=== PATIENT | male | born 1950 | race Caucasian/White ===

== ENCOUNTER 2020-12-23 14:46 | Inpatient (IN) | payer MEDICARE ==
[2020-12-23] MEDS ORDERED: Dextrose 50% Abboject 50 ML SYRINGE IVP PRN (17:45)
[2020-12-23] MEDS ORDERED: HumaLOG 300 UNITS/3 ML VIAL SC PRN (17:45)
[2020-12-23] MEDS ORDERED: Dextrose 5% in Water 1,000 ML IV PRN (17:45)
[2020-12-23] MEDS: Gabapentin 300 MG CAP PO SCH (20:24)
[2020-12-23] MEDS: Ferrous Sulfate 325 MG TAB PO SCH (20:24)
[2020-12-23] MEDS: HYDROcodone/Acetaminophen 5/325 mg Tablet PO PRN (20:24)
[2020-12-23] MEDS: Clopidogrel Bisulfate 75 MG TAB PO SCH (20:25)
[2020-12-23] MEDS: Simvastatin 10 MG TAB PO SCH (20:25)
[2020-12-23] MEDS: Lisinopril 10 MG TAB PO SCH (20:25)
[2020-12-23] MEDS: Lantus 1000 UNITS/10 ML VIAL SC SCH (20:36)
[2020-12-23] MEDS: Zolpidem Tartrate 5 MG TAB PO PRN (20:37)
[2020-12-24 06:38] LABS: #Basophils 0.1 thou/uL (0.0-0.2); #Eosinphils 0.3 thou/uL (0.0-0.7); #Monocytes 0.7 thou/uL (0.11-0.59); #Neutrophils 3.9 thou/uL (1.40-6.50); %Basophils 1.2 % (0.0-1.0); %Eosinophils 4.3 % (0.0-10.0); %Lymphocytes 16.6 % (21.0-51.0); %Monocytes 11.9 % (0.0-10.0); %Neutrophils 66.1 % (42.0-75.0); Mean Corpuscular HGB CONC 29.3 g/dL (32.0-36.0); Mean Corpuscular Hemoglobin 27.8 pg (27.0-31.0); Mean Corpuscular Volume 94.9 fL (78.0-98.0); Mean Platelet Volume 6.9 fL (7.4-10.4); Platelet Count 202 thou/uL (130-400); RBC Distribution Width 21.3 % (11.5-14.5); Red Blood Cell (RBC) Count 4.31 mill/uL (4.70-6.10); White Blood Cell (WBC) Count 5.9 thou/uL (4.8-10.8)
[2020-12-24 06:41] LABS: ALT (SGPT) Less than 6 U/L (8-55); AST (SGOT) 7 U/L (5-34); Albumin 2.5 g/dL (3.4-4.8); Alkaline Phosphatase 115 U/L (40-110); Anion Gap 11 mmol/L (10-20); BUN (Urea Nitrogen) 17 mg/dL (8.4-25.7); Bilirubin, Total 0.6 mg/dL (0.2-1.2); Calc. Creatinine Clearance 126 mL/min (70-130); Calcium 8.4 mg/dL (7.8-10.44); Carbon Dioxide 27 mmol/L (23-31); Chloride 102 mmol/L (98-107); Globulin 3.4 g/dL (2.4-3.5); Glucose 109 mg/dL (80-115); Potassium 3.9 mmol/L (3.5-5.1); Protein, Total 5.9 g/dL (5.8-8.1); Sodium 136 mmol/L (136-145)
[2020-12-24] MEDS: Carvedilol 6.25 MG TAB PO SCH ×2 (08:05→17:16)
[2020-12-24] MEDS: Furosemide 20 MG TAB PO SCH (08:05)
[2020-12-24] MEDS: metFORMIN 500 MG TAB PO SCH ×2 (08:06→17:17)
[2020-12-24] MEDS: Escitalopram Oxalate 10 mg Tablet PO SCH (08:06)
[2020-12-24] MEDS: Spironolactone 25 MG TAB PO SCH (08:06)
[2020-12-24] MEDS: Aspirin 81 mg Enteric Coated Tablet PO SCH (08:06)
[2020-12-24] MEDS: Ferrous Sulfate 325 MG TAB PO SCH ×2 (08:06→20:18)
[2020-12-24] MEDS: HYDROcodone/Acetaminophen 5/325 mg Tablet PO PRN ×2 (08:07→20:19)
[2020-12-24 14:11] LABS: MDiff Complete? YES
[2020-12-24 14:12] LABS: Anisocytosis SLIGHT = 6-15 cells (100X) (0-5/hpf); Platelet Morphology Comment Appears Adequate
[2020-12-24] MEDS: Lantus 1000 UNITS/10 ML VIAL SC SCH (20:17)
[2020-12-24] MEDS: Gabapentin 300 MG CAP PO SCH (20:18)
[2020-12-24] MEDS: Clopidogrel Bisulfate 75 MG TAB PO SCH (20:18)
[2020-12-24] MEDS: Lisinopril 10 MG TAB PO SCH (20:18)
[2020-12-24] MEDS: Simvastatin 10 MG TAB PO SCH (20:19)
[2020-12-24] MEDS: Zolpidem Tartrate 5 MG TAB PO PRN (20:19)
[2020-12-25] MEDS: metFORMIN 500 MG TAB PO SCH ×2 (08:06→16:36)
[2020-12-25] MEDS: Furosemide 20 MG TAB PO SCH (08:06)
[2020-12-25] MEDS: Carvedilol 6.25 MG TAB PO SCH ×2 (08:06→16:36)
[2020-12-25] MEDS: Aspirin 81 mg Enteric Coated Tablet PO SCH (08:07)
[2020-12-25] MEDS: Spironolactone 25 MG TAB PO SCH (08:07)
[2020-12-25] MEDS: Ferrous Sulfate 325 MG TAB PO SCH ×2 (08:07→20:45)
[2020-12-25] MEDS: Escitalopram Oxalate 10 mg Tablet PO SCH (08:07)
[2020-12-25] MEDS: HYDROcodone/Acetaminophen 5/325 mg Tablet PO PRN ×3 (08:07→20:46)
[2020-12-25] MEDS: Zolpidem Tartrate 5 MG TAB PO PRN (20:45)
[2020-12-25] MEDS: Lisinopril 10 MG TAB PO SCH (20:45)
[2020-12-25] MEDS: Simvastatin 10 MG TAB PO SCH (20:45)
[2020-12-25] MEDS: Clopidogrel Bisulfate 75 MG TAB PO SCH (20:45)
[2020-12-25] MEDS: Gabapentin 300 MG CAP PO SCH (20:46)
[2020-12-25] MEDS: Lantus 1000 UNITS/10 ML VIAL SC SCH (20:55)
[2020-12-26] MEDS: metFORMIN 500 MG TAB PO SCH ×2 (08:20→17:34)
[2020-12-26] MEDS: Furosemide 20 MG TAB PO SCH (08:20)
[2020-12-26] MEDS: Spironolactone 25 MG TAB PO SCH (08:21)
[2020-12-26] MEDS: Carvedilol 6.25 MG TAB PO SCH ×2 (08:21→17:36)
[2020-12-26] MEDS: Ferrous Sulfate 325 MG TAB PO SCH ×2 (08:21→21:21)
[2020-12-26] MEDS: Aspirin 81 mg Enteric Coated Tablet PO SCH (08:22)
[2020-12-26] MEDS: Escitalopram Oxalate 10 mg Tablet PO SCH (08:22)
[2020-12-26] MEDS: HYDROcodone/Acetaminophen 5/325 mg Tablet PO PRN ×2 (11:35→19:50)
[2020-12-26] MEDS: Clopidogrel Bisulfate 75 MG TAB PO SCH (21:21)
[2020-12-26] MEDS: Lisinopril 10 MG TAB PO SCH (21:21)
[2020-12-26] MEDS: Zolpidem Tartrate 5 MG TAB PO PRN (21:21)
[2020-12-26] MEDS: Simvastatin 10 MG TAB PO SCH (21:21)
[2020-12-26] MEDS: Gabapentin 300 MG CAP PO SCH (21:22)
[2020-12-26] MEDS: Lantus 1000 UNITS/10 ML VIAL SC SCH (21:22)
[2020-12-27] MEDS: Carvedilol 6.25 MG TAB PO SCH ×2 (08:55→17:51)
[2020-12-27] MEDS: Furosemide 20 MG TAB PO SCH (08:55)
[2020-12-27] MEDS: Escitalopram Oxalate 10 mg Tablet PO SCH (08:55)
[2020-12-27] MEDS: metFORMIN 500 MG TAB PO SCH ×2 (08:55→17:51)
[2020-12-27] MEDS: Ferrous Sulfate 325 MG TAB PO SCH ×2 (08:55→21:10)
[2020-12-27] MEDS: Aspirin 81 mg Enteric Coated Tablet PO SCH (08:55)
[2020-12-27] MEDS: Spironolactone 25 MG TAB PO SCH (08:56)
[2020-12-27] MEDS: HYDROcodone/Acetaminophen 5/325 mg Tablet PO PRN (12:42)
[2020-12-27] MEDS: Simvastatin 10 MG TAB PO SCH (21:10)
[2020-12-27] MEDS: Clopidogrel Bisulfate 75 MG TAB PO SCH (21:10)
[2020-12-27] MEDS: Gabapentin 300 MG CAP PO SCH (21:10)
[2020-12-27] MEDS: Lantus 1000 UNITS/10 ML VIAL SC SCH (21:11)
[2020-12-27] MEDS: Lisinopril 10 MG TAB PO SCH (21:11)
[2020-12-27] MEDS: Zolpidem Tartrate 5 MG TAB PO PRN (21:12)
[2020-12-28] MEDS: Furosemide 20 MG TAB PO SCH (08:15)
[2020-12-28] MEDS: Aspirin 81 mg Enteric Coated Tablet PO SCH (08:15)
[2020-12-28] MEDS: Escitalopram Oxalate 10 mg Tablet PO SCH (08:15)
[2020-12-28] MEDS: Ferrous Sulfate 325 MG TAB PO SCH ×2 (08:15→21:53)
[2020-12-28] MEDS: metFORMIN 500 MG TAB PO SCH ×2 (08:15→17:26)
[2020-12-28] MEDS: Spironolactone 25 MG TAB PO SCH (08:15)
[2020-12-28] MEDS: Carvedilol 6.25 MG TAB PO SCH ×2 (08:16→17:26)
[2020-12-28] MEDS ORDERED: Gabapentin 300 MG CAP PO SCH (10:15)
[2020-12-28] MEDS: HumaLOG 300 UNITS/3 ML VIAL SC PRN (11:23)
[2020-12-28] MEDS: HYDROcodone/Acetaminophen 5/325 mg Tablet PO PRN ×3 (11:25→22:06)
[2020-12-28] MEDS: Lisinopril 10 MG TAB PO SCH (21:52)
[2020-12-28] MEDS: Clopidogrel Bisulfate 75 MG TAB PO SCH (21:53)
[2020-12-28] MEDS: Simvastatin 10 MG TAB PO SCH (21:53)
[2020-12-28] MEDS: Gabapentin 300 MG CAP PO SCH (21:53)
[2020-12-28] MEDS: Lantus 1000 UNITS/10 ML VIAL SC SCH (21:54)
[2020-12-28] MEDS: Zolpidem Tartrate 5 MG TAB PO PRN (22:06)
[2020-12-29] MEDS: metFORMIN 500 MG TAB PO SCH ×2 (08:18→17:35)
[2020-12-29] MEDS: Spironolactone 25 MG TAB PO SCH (08:18)
[2020-12-29] MEDS: Ferrous Sulfate 325 MG TAB PO SCH ×2 (08:18→21:11)
[2020-12-29] MEDS: Gabapentin 300 MG CAP PO SCH ×2 (08:18→21:13)
[2020-12-29] MEDS: Furosemide 20 MG TAB PO SCH (08:18)
[2020-12-29] MEDS: Aspirin 81 mg Enteric Coated Tablet PO SCH (08:18)
[2020-12-29] MEDS: Carvedilol 6.25 MG TAB PO SCH ×2 (08:19→17:35)
[2020-12-29] MEDS: Escitalopram Oxalate 10 mg Tablet PO SCH (08:19)
[2020-12-29] MEDS: HYDROcodone/Acetaminophen 5/325 mg Tablet PO PRN ×3 (09:08→21:12)
[2020-12-29] MEDS: HumaLOG 300 UNITS/3 ML VIAL SC PRN (17:35)
[2020-12-29] MEDS: Simvastatin 10 MG TAB PO SCH (21:11)
[2020-12-29] MEDS: Clopidogrel Bisulfate 75 MG TAB PO SCH (21:11)
[2020-12-29] MEDS: Lisinopril 10 MG TAB PO SCH (21:11)
[2020-12-29] MEDS: Zolpidem Tartrate 5 MG TAB PO PRN (21:12)
[2020-12-29] MEDS: Lantus 1000 UNITS/10 ML VIAL SC SCH (21:15)
[2020-12-30] MEDS: Ferrous Sulfate 325 MG TAB PO SCH ×2 (08:19→21:34)
[2020-12-30] MEDS: Furosemide 20 MG TAB PO SCH (08:19)
[2020-12-30] MEDS: Gabapentin 300 MG CAP PO SCH ×2 (08:20→21:35)
[2020-12-30] MEDS: HYDROcodone/Acetaminophen 5/325 mg Tablet PO PRN ×3 (08:21→19:09)
[2020-12-30] MEDS: metFORMIN 500 MG TAB PO SCH ×2 (08:22→17:29)
[2020-12-30] MEDS: Aspirin 81 mg Enteric Coated Tablet PO SCH (08:22)
[2020-12-30] MEDS: Carvedilol 6.25 MG TAB PO SCH ×2 (08:22→17:30)
[2020-12-30] MEDS: Spironolactone 25 MG TAB PO SCH (08:22)
[2020-12-30] MEDS: Escitalopram Oxalate 10 mg Tablet PO SCH (08:22)
[2020-12-30] MEDS: HumaLOG 300 UNITS/3 ML VIAL SC PRN (12:25)
[2020-12-30] MEDS: Simvastatin 10 MG TAB PO SCH (21:34)
[2020-12-30] MEDS: Zolpidem Tartrate 5 MG TAB PO PRN (21:34)
[2020-12-30] MEDS: Lisinopril 10 MG TAB PO SCH (21:35)
[2020-12-30] MEDS: Clopidogrel Bisulfate 75 MG TAB PO SCH (21:35)
[2020-12-30] MEDS: Lantus 1000 UNITS/10 ML VIAL SC SCH (21:36)
[2020-12-31] MEDS: Furosemide 20 MG TAB PO SCH (08:39)
[2020-12-31] MEDS: metFORMIN 500 MG TAB PO SCH ×2 (08:39→17:54)
[2020-12-31] MEDS: Carvedilol 6.25 MG TAB PO SCH ×2 (08:39→17:54)
[2020-12-31] MEDS: Spironolactone 25 MG TAB PO SCH (08:39)
[2020-12-31] MEDS: Escitalopram Oxalate 10 mg Tablet PO SCH (08:39)
[2020-12-31] MEDS: Aspirin 81 mg Enteric Coated Tablet PO SCH (08:39)
[2020-12-31] MEDS: HYDROcodone/Acetaminophen 5/325 mg Tablet PO PRN ×2 (08:40→20:04)
[2020-12-31] MEDS: Ferrous Sulfate 325 MG TAB PO SCH ×2 (08:40→20:02)
[2020-12-31] MEDS: Gabapentin 300 MG CAP PO SCH ×2 (08:41→20:03)
[2020-12-31] MEDS: HumaLOG 300 UNITS/3 ML VIAL SC PRN (11:53)
[2020-12-31] MEDS ORDERED: Acetaminophen 500 MG TAB PO PRN (12:27)
[2020-12-31] MEDS: Acetaminophen 500 MG TAB PO PRN (13:48)
[2020-12-31] MEDS: Lisinopril 10 MG TAB PO SCH (20:02)
[2020-12-31] MEDS: Lantus 1000 UNITS/10 ML VIAL SC SCH (20:02)
[2020-12-31] MEDS: Clopidogrel Bisulfate 75 MG TAB PO SCH (20:02)
[2020-12-31] MEDS: Simvastatin 10 MG TAB PO SCH (20:03)
[2021-01-01] MEDS: Acetaminophen 500 MG TAB PO PRN ×4 (00:57→19:51)
[2021-01-01] MEDS: Aspirin 81 mg Enteric Coated Tablet PO SCH (08:54)
[2021-01-01] MEDS: Spironolactone 25 MG TAB PO SCH (08:54)
[2021-01-01] MEDS: Carvedilol 6.25 MG TAB PO SCH ×2 (08:54→17:15)
[2021-01-01] MEDS: Gabapentin 300 MG CAP PO SCH ×2 (08:54→19:52)
[2021-01-01] MEDS: Escitalopram Oxalate 10 mg Tablet PO SCH (08:54)
[2021-01-01] MEDS: Ferrous Sulfate 325 MG TAB PO SCH ×2 (08:54→19:53)
[2021-01-01] MEDS: Furosemide 20 MG TAB PO SCH (08:54)
[2021-01-01] MEDS: metFORMIN 500 MG TAB PO SCH ×2 (08:54→17:15)
[2021-01-01] MEDS: HYDROcodone/Acetaminophen 5/325 mg Tablet PO PRN ×2 (09:01→15:01)
[2021-01-01] MEDS: Lisinopril 10 MG TAB PO SCH (19:51)
[2021-01-01] MEDS: Simvastatin 10 MG TAB PO SCH (19:53)
[2021-01-01] MEDS: Clopidogrel Bisulfate 75 MG TAB PO SCH (19:53)
[2021-01-01] MEDS: Zolpidem Tartrate 5 MG TAB PO PRN (21:34)
[2021-01-01] MEDS: Lantus 1000 UNITS/10 ML VIAL SC SCH (21:34)
[2021-01-02] MEDS: Aspirin 81 mg Enteric Coated Tablet PO SCH (08:32)
[2021-01-02] MEDS: Spironolactone 25 MG TAB PO SCH (08:32)
[2021-01-02] MEDS: Furosemide 20 MG TAB PO SCH (08:32)
[2021-01-02] MEDS: Ferrous Sulfate 325 MG TAB PO SCH ×2 (08:32→20:48)
[2021-01-02] MEDS: metFORMIN 500 MG TAB PO SCH ×2 (08:32→17:36)
[2021-01-02] MEDS: Gabapentin 300 MG CAP PO SCH ×2 (08:32→20:47)
[2021-01-02] MEDS: Escitalopram Oxalate 10 mg Tablet PO SCH (08:32)
[2021-01-02] MEDS: Carvedilol 6.25 MG TAB PO SCH ×2 (08:33→17:36)
[2021-01-02] MEDS: HumaLOG 300 UNITS/3 ML VIAL SC PRN (12:06)
[2021-01-02] MEDS: HYDROcodone/Acetaminophen 5/325 mg Tablet PO PRN ×2 (13:18→20:48)
[2021-01-02] MEDS: Acetaminophen 500 MG TAB PO PRN (13:19)
[2021-01-02] MEDS: Clopidogrel Bisulfate 75 MG TAB PO SCH (20:46)
[2021-01-02] MEDS: Lisinopril 10 MG TAB PO SCH (20:46)
[2021-01-02] MEDS: Simvastatin 10 MG TAB PO SCH (20:48)
[2021-01-02] MEDS: Lantus 1000 UNITS/10 ML VIAL SC SCH (20:50)
[2021-01-02] MEDS: Zolpidem Tartrate 5 MG TAB PO PRN (21:35)
[2021-01-03] MEDS: Furosemide 20 MG TAB PO SCH (08:01)
[2021-01-03] MEDS: Gabapentin 300 MG CAP PO SCH ×2 (08:01→20:25)
[2021-01-03] MEDS: Aspirin 81 mg Enteric Coated Tablet PO SCH (08:01)
[2021-01-03] MEDS: Spironolactone 25 MG TAB PO SCH (08:01)
[2021-01-03] MEDS: Carvedilol 6.25 MG TAB PO SCH ×2 (08:01→17:24)
[2021-01-03] MEDS: metFORMIN 500 MG TAB PO SCH ×2 (08:01→17:25)
[2021-01-03] MEDS: Ferrous Sulfate 325 MG TAB PO SCH ×2 (08:01→20:24)
[2021-01-03] MEDS: Escitalopram Oxalate 10 mg Tablet PO SCH (08:02)
[2021-01-03] MEDS: HYDROcodone/Acetaminophen 5/325 mg Tablet PO PRN ×2 (09:12→20:26)
[2021-01-03] MEDS: Acetaminophen 500 MG TAB PO PRN (14:16)
[2021-01-03] MEDS: Simvastatin 10 MG TAB PO SCH (20:25)
[2021-01-03] MEDS: Lisinopril 10 MG TAB PO SCH (20:25)
[2021-01-03] MEDS: Clopidogrel Bisulfate 75 MG TAB PO SCH (20:25)
[2021-01-03] MEDS: Lantus 1000 UNITS/10 ML VIAL SC SCH (20:27)
[2021-01-03] MEDS: Zolpidem Tartrate 5 MG TAB PO PRN (22:00)
[2021-01-04] MEDS: Aspirin 81 mg Enteric Coated Tablet PO SCH (09:11)
[2021-01-04] MEDS: metFORMIN 500 MG TAB PO SCH ×2 (09:11→17:20)
[2021-01-04] MEDS: Spironolactone 25 MG TAB PO SCH (09:11)
[2021-01-04] MEDS: Carvedilol 6.25 MG TAB PO SCH ×2 (09:11→17:20)
[2021-01-04] MEDS: Ferrous Sulfate 325 MG TAB PO SCH ×2 (09:11→19:53)
[2021-01-04] MEDS: Furosemide 20 MG TAB PO SCH (09:12)
[2021-01-04] MEDS: Escitalopram Oxalate 10 mg Tablet PO SCH (09:12)
[2021-01-04] MEDS: Gabapentin 300 MG CAP PO SCH ×2 (09:14→19:54)
[2021-01-04] MEDS: HYDROcodone/Acetaminophen 5/325 mg Tablet PO PRN ×2 (09:16→19:51)
[2021-01-04] MEDS: HumaLOG 300 UNITS/3 ML VIAL SC PRN (12:01)
[2021-01-04] MEDS: Acetaminophen 500 MG TAB PO PRN (17:19)
[2021-01-04] MEDS: Lisinopril 10 MG TAB PO SCH (19:53)
[2021-01-04] MEDS: Simvastatin 10 MG TAB PO SCH (19:54)
[2021-01-04] MEDS: Clopidogrel Bisulfate 75 MG TAB PO SCH (19:54)
[2021-01-04] MEDS: Lantus 1000 UNITS/10 ML VIAL SC SCH (20:30)
[2021-01-04] MEDS: Zolpidem Tartrate 5 MG TAB PO PRN (21:54)
[2021-01-05] MEDS: Furosemide 20 MG TAB PO SCH (08:15)
[2021-01-05] MEDS: Carvedilol 6.25 MG TAB PO SCH ×2 (09:04→17:39)
[2021-01-05] MEDS: Spironolactone 25 MG TAB PO SCH (09:04)
[2021-01-05] MEDS: Aspirin 81 mg Enteric Coated Tablet PO SCH (09:04)
[2021-01-05] MEDS: Ferrous Sulfate 325 MG TAB PO SCH ×2 (09:04→20:30)
[2021-01-05] MEDS: metFORMIN 500 MG TAB PO SCH ×2 (09:04→17:39)
[2021-01-05] MEDS: Escitalopram Oxalate 10 mg Tablet PO SCH (09:04)
[2021-01-05] MEDS: Gabapentin 300 MG CAP PO SCH ×2 (09:05→20:30)
[2021-01-05] MEDS: HYDROcodone/Acetaminophen 5/325 mg Tablet PO PRN ×2 (09:10→20:34)
[2021-01-05] MEDS: HumaLOG 300 UNITS/3 ML VIAL SC PRN (11:56)
[2021-01-05] MEDS: Acetaminophen 500 MG TAB PO PRN (17:43)
[2021-01-05] MEDS: Clopidogrel Bisulfate 75 MG TAB PO SCH (20:30)
[2021-01-05] MEDS: Simvastatin 10 MG TAB PO SCH (20:30)
[2021-01-05] MEDS: Lisinopril 10 MG TAB PO SCH (20:30)
[2021-01-05] MEDS: Lantus 1000 UNITS/10 ML VIAL SC SCH (20:39)
[2021-01-05] MEDS: Zolpidem Tartrate 5 MG TAB PO PRN (21:59)
[2021-01-06] MEDS: HYDROcodone/Acetaminophen 5/325 mg Tablet PO PRN ×3 (08:26→22:10)
[2021-01-06] MEDS: Aspirin 81 mg Enteric Coated Tablet PO SCH (08:32)
[2021-01-06] MEDS: Carvedilol 6.25 MG TAB PO SCH ×2 (08:33→17:19)
[2021-01-06] MEDS: metFORMIN 500 MG TAB PO SCH ×2 (08:33→17:19)
[2021-01-06] MEDS: Escitalopram Oxalate 10 mg Tablet PO SCH (08:35)
[2021-01-06] MEDS: Ferrous Sulfate 325 MG TAB PO SCH ×2 (08:35→22:12)
[2021-01-06] MEDS: Gabapentin 300 MG CAP PO SCH ×2 (08:35→22:12)
[2021-01-06] MEDS: Spironolactone 25 MG TAB PO SCH (08:35)
[2021-01-06] MEDS: Furosemide 20 MG TAB PO SCH (08:35)
[2021-01-06] MEDS: Zolpidem Tartrate 5 MG TAB PO PRN (22:10)
[2021-01-06] MEDS: Simvastatin 10 MG TAB PO SCH (22:11)
[2021-01-06] MEDS: Clopidogrel Bisulfate 75 MG TAB PO SCH (22:11)
[2021-01-06] MEDS: Lisinopril 10 MG TAB PO SCH (22:11)
[2021-01-06] MEDS: Lantus 1000 UNITS/10 ML VIAL SC SCH (22:16)
[2021-01-07] MEDS: HYDROcodone/Acetaminophen 5/325 mg Tablet PO PRN ×3 (08:41→22:05)
[2021-01-07] MEDS: Escitalopram Oxalate 10 mg Tablet PO SCH (08:43)
[2021-01-07] MEDS: Gabapentin 300 MG CAP PO SCH ×2 (08:43→22:04)
[2021-01-07] MEDS: Aspirin 81 mg Enteric Coated Tablet PO SCH (08:43)
[2021-01-07] MEDS: Carvedilol 6.25 MG TAB PO SCH ×2 (08:44→17:16)
[2021-01-07] MEDS: Ferrous Sulfate 325 MG TAB PO SCH ×2 (08:44→22:04)
[2021-01-07] MEDS: metFORMIN 500 MG TAB PO SCH ×2 (08:44→17:16)
[2021-01-07] MEDS: Furosemide 20 MG TAB PO SCH (08:45)
[2021-01-07] MEDS: Spironolactone 25 MG TAB PO SCH (08:45)
[2021-01-07] MEDS: HumaLOG 300 UNITS/3 ML VIAL SC PRN (17:24)
[2021-01-07] MEDS: Lisinopril 10 MG TAB PO SCH (22:03)
[2021-01-07] MEDS: Zolpidem Tartrate 5 MG TAB PO PRN (22:04)
[2021-01-07] MEDS: Simvastatin 10 MG TAB PO SCH (22:04)
[2021-01-07] MEDS: Lantus 1000 UNITS/10 ML VIAL SC SCH (22:06)
[2021-01-07] MEDS: Clopidogrel Bisulfate 75 MG TAB PO SCH (22:11)
[2021-01-08] MEDS: metFORMIN 500 MG TAB PO SCH ×2 (08:34→17:14)
[2021-01-08] MEDS: Carvedilol 6.25 MG TAB PO SCH ×2 (08:34→17:14)
[2021-01-08] MEDS: Furosemide 20 MG TAB PO SCH (08:34)
[2021-01-08] MEDS: Spironolactone 25 MG TAB PO SCH (08:34)
[2021-01-08] MEDS: Aspirin 81 mg Enteric Coated Tablet PO SCH (08:35)
[2021-01-08] MEDS: Gabapentin 300 MG CAP PO SCH ×2 (08:35→20:53)
[2021-01-08] MEDS: Ferrous Sulfate 325 MG TAB PO SCH ×2 (08:35→20:53)
[2021-01-08] MEDS: Escitalopram Oxalate 10 mg Tablet PO SCH (08:35)
[2021-01-08] MEDS: HYDROcodone/Acetaminophen 5/325 mg Tablet PO PRN ×2 (13:49→21:59)
[2021-01-08] MEDS: Clopidogrel Bisulfate 75 MG TAB PO SCH (20:53)
[2021-01-08] MEDS: Lisinopril 10 MG TAB PO SCH (20:54)
[2021-01-08] MEDS: Simvastatin 10 MG TAB PO SCH (20:54)
[2021-01-08] MEDS: Lantus 1000 UNITS/10 ML VIAL SC SCH (20:55)
[2021-01-08] MEDS: Zolpidem Tartrate 5 MG TAB PO PRN (22:00)
[2021-01-09] MEDS: Aspirin 81 mg Enteric Coated Tablet PO SCH (08:24)
[2021-01-09] MEDS: Gabapentin 300 MG CAP PO SCH ×2 (08:25→21:49)
[2021-01-09] MEDS: Milk Of Magnesia 30 ML UDCUP PO PRN (08:25)
[2021-01-09] MEDS: Escitalopram Oxalate 10 mg Tablet PO SCH (08:26)
[2021-01-09] MEDS: metFORMIN 500 MG TAB PO SCH ×2 (08:26→17:44)
[2021-01-09] MEDS: Ferrous Sulfate 325 MG TAB PO SCH ×2 (08:26→21:47)
[2021-01-09] MEDS: Carvedilol 6.25 MG TAB PO SCH ×2 (09:25→17:44)
[2021-01-09] MEDS: Furosemide 20 MG TAB PO SCH (09:26)
[2021-01-09] MEDS: Spironolactone 25 MG TAB PO SCH (09:31)
[2021-01-09] MEDS: HYDROcodone/Acetaminophen 5/325 mg Tablet PO PRN ×2 (13:13→21:48)
[2021-01-09] MEDS: Simvastatin 10 MG TAB PO SCH (21:47)
[2021-01-09] MEDS: Clopidogrel Bisulfate 75 MG TAB PO SCH (21:47)
[2021-01-09] MEDS: Lisinopril 10 MG TAB PO SCH (21:47)
[2021-01-09] MEDS: Zolpidem Tartrate 5 MG TAB PO PRN (21:48)
[2021-01-09] MEDS: Lantus 1000 UNITS/10 ML VIAL SC SCH (21:49)
[2021-01-10] MEDS: Ferrous Sulfate 325 MG TAB PO SCH ×2 (07:45→21:22)
[2021-01-10] MEDS: metFORMIN 500 MG TAB PO SCH ×2 (08:53→17:33)
[2021-01-10] MEDS: Carvedilol 6.25 MG TAB PO SCH ×2 (08:53→17:33)
[2021-01-10] MEDS: Escitalopram Oxalate 10 mg Tablet PO SCH (08:54)
[2021-01-10] MEDS: Aspirin 81 mg Enteric Coated Tablet PO SCH (08:54)
[2021-01-10] MEDS: Gabapentin 300 MG CAP PO SCH ×2 (08:55→21:20)
[2021-01-10] MEDS: Furosemide 20 MG TAB PO SCH (09:01)
[2021-01-10] MEDS: Spironolactone 25 MG TAB PO SCH (09:03)
[2021-01-10] MEDS: HYDROcodone/Acetaminophen 5/325 mg Tablet PO PRN ×2 (09:06→21:27)
[2021-01-10] MEDS: Milk Of Magnesia 30 ML UDCUP PO PRN (09:12)
[2021-01-10] MEDS: HumaLOG 300 UNITS/3 ML VIAL SC PRN (12:06)
[2021-01-10] MEDS: Acetaminophen 500 MG TAB PO PRN (21:21)
[2021-01-10] MEDS: Clopidogrel Bisulfate 75 MG TAB PO SCH (21:22)
[2021-01-10] MEDS: Lisinopril 10 MG TAB PO SCH (21:22)
[2021-01-10] MEDS: Zolpidem Tartrate 5 MG TAB PO PRN (21:22)
[2021-01-10] MEDS: Simvastatin 10 MG TAB PO SCH (21:22)
[2021-01-10] MEDS: Lantus 1000 UNITS/10 ML VIAL SC SCH (21:22)
[2021-01-11] MEDS: Furosemide 20 MG TAB PO SCH (08:18)
[2021-01-11] MEDS: Escitalopram Oxalate 10 mg Tablet PO SCH (08:18)
[2021-01-11] MEDS: Ferrous Sulfate 325 MG TAB PO SCH ×2 (08:18→21:04)
[2021-01-11] MEDS: Aspirin 81 mg Enteric Coated Tablet PO SCH (08:18)
[2021-01-11] MEDS: Spironolactone 25 MG TAB PO SCH (08:18)
[2021-01-11] MEDS: metFORMIN 500 MG TAB PO SCH ×2 (08:18→17:48)
[2021-01-11] MEDS: Gabapentin 300 MG CAP PO SCH ×2 (08:18→21:03)
[2021-01-11] MEDS: Carvedilol 6.25 MG TAB PO SCH ×2 (08:19→17:49)
[2021-01-11] MEDS: HYDROcodone/Acetaminophen 5/325 mg Tablet PO PRN ×4 (08:23→22:03)
[2021-01-11] MEDS: Milk Of Magnesia 30 ML UDCUP PO PRN (08:23)
[2021-01-11] MEDS: HumaLOG 300 UNITS/3 ML VIAL SC PRN (12:15)
[2021-01-11] MEDS: Acetaminophen 500 MG TAB PO PRN (17:48)
[2021-01-11] MEDS: Lisinopril 10 MG TAB PO SCH (21:03)
[2021-01-11] MEDS: Clopidogrel Bisulfate 75 MG TAB PO SCH (21:03)
[2021-01-11] MEDS: Lantus 1000 UNITS/10 ML VIAL SC SCH (21:04)
[2021-01-11] MEDS: Simvastatin 10 MG TAB PO SCH (21:04)
[2021-01-11] MEDS: Zolpidem Tartrate 5 MG TAB PO PRN (22:05)
[2021-01-12 05:57] LABS: #Basophils 0.2 thou/uL (0.0-0.2); #Eosinphils 0.6 thou/uL (0.0-0.7); #Lymphocytes 1.3 thou/uL (1.20-3.40); #Monocytes 0.6 thou/uL (0.11-0.59); #Neutrophils 4.4 thou/uL (1.40-6.50); %Basophils 2.2 % (0.0-1.0); %Eosinophils 7.8 % (0.0-10.0); %Lymphocytes 18.5 % (21.0-51.0); %Neutrophils 62.5 % (42.0-75.0); Anisocytosis MODERATE=16-30 cells (100X) (0-5/hpf); Bite Cells SLIGHT = 2-5 cells (100X) (0-1/hpf); Burr Cells SLIGHT = 2-5 cells (100X) (0-1/hpf); Hemoglobin 11.8 g/dL (14.0-18.0); MDiff Complete? YES; Mean Corpuscular HGB CONC 30.6 g/dL (32.0-36.0); Mean Corpuscular Hemoglobin 29.3 pg (27.0-31.0); Mean Corpuscular Volume 95.8 fL (78.0-98.0); Mean Platelet Volume 6.6 fL (7.4-10.4); Ovalocytes SLIGHT = 2-5 cells (100X) (0-1/hpf); Platelet Count 276 thou/uL (130-400); Platelet Morphology Comment Appears Adequate; Poikilocytosis MODERATE=16-30 cells (100X) (0-5/hpf); RBC Distribution Width 18.9 % (11.5-14.5); Red Blood Cell (RBC) Count 4.01 mill/uL (4.70-6.10); Tear Drops SLIGHT = 2-5 cells (100X) (0-1/hpf)
[2021-01-12 05:58] LABS: Anion Gap 12 mmol/L (10-20); BUN (Urea Nitrogen) 23 mg/dL (8.4-25.7); Calc. Creatinine Clearance 110 mL/min (70-130); Calcium 8.8 mg/dL (7.8-10.44); Carbon Dioxide 26 mmol/L (23-31); Chloride 100 mmol/L (98-107); Glucose 96 mg/dL (80-115); Potassium 4.4 mmol/L (3.5-5.1); Sodium 134 mmol/L (136-145)
[2021-01-12] MEDS: Furosemide 20 MG TAB PO SCH (09:07)
[2021-01-12] MEDS: Spironolactone 25 MG TAB PO SCH (09:08)
[2021-01-12] MEDS: metFORMIN 500 MG TAB PO SCH ×2 (09:08→17:45)
[2021-01-12] MEDS: Escitalopram Oxalate 10 mg Tablet PO SCH (09:08)
[2021-01-12] MEDS: Ferrous Sulfate 325 MG TAB PO SCH ×2 (09:08→21:37)
[2021-01-12] MEDS: Aspirin 81 mg Enteric Coated Tablet PO SCH (09:08)
[2021-01-12] MEDS: Carvedilol 6.25 MG TAB PO SCH ×2 (09:08→17:45)
[2021-01-12] MEDS: Gabapentin 300 MG CAP PO SCH ×2 (09:09→21:38)
[2021-01-12] MEDS: HYDROcodone/Acetaminophen 5/325 mg Tablet PO PRN ×2 (18:16→21:39)
[2021-01-12] MEDS: Zolpidem Tartrate 5 MG TAB PO PRN (21:37)
[2021-01-12] MEDS: Clopidogrel Bisulfate 75 MG TAB PO SCH (21:37)
[2021-01-12] MEDS: Simvastatin 10 MG TAB PO SCH (21:38)
[2021-01-12] MEDS: Lisinopril 10 MG TAB PO SCH (21:38)
[2021-01-12] MEDS: Lantus 1000 UNITS/10 ML VIAL SC SCH (22:00)
[2021-01-13] MEDS: Furosemide 20 MG TAB PO SCH (08:02)
[2021-01-13] MEDS: metFORMIN 500 MG TAB PO SCH ×2 (08:03→16:41)
[2021-01-13] MEDS: Carvedilol 6.25 MG TAB PO SCH ×2 (08:03→16:41)
[2021-01-13] MEDS: Spironolactone 25 MG TAB PO SCH (08:04)
[2021-01-13] MEDS: Gabapentin 300 MG CAP PO SCH ×2 (08:04→21:12)
[2021-01-13] MEDS: Aspirin 81 mg Enteric Coated Tablet PO SCH (08:04)
[2021-01-13] MEDS: Ferrous Sulfate 325 MG TAB PO SCH ×2 (08:04→21:12)
[2021-01-13] MEDS: Escitalopram Oxalate 10 mg Tablet PO SCH (08:04)
[2021-01-13] MEDS: HumaLOG 300 UNITS/3 ML VIAL SC PRN (12:26)
[2021-01-13] MEDS: Acetaminophen 500 MG TAB PO PRN (12:34)
[2021-01-13] MEDS: Clopidogrel Bisulfate 75 MG TAB PO SCH (21:12)
[2021-01-13] MEDS: Lisinopril 10 MG TAB PO SCH (21:12)
[2021-01-13] MEDS: Lantus 1000 UNITS/10 ML VIAL SC SCH (21:13)
[2021-01-13] MEDS: Simvastatin 10 MG TAB PO SCH (21:13)
[2021-01-13] MEDS: HYDROcodone/Acetaminophen 5/325 mg Tablet PO PRN (22:03)
[2021-01-13] MEDS: Zolpidem Tartrate 5 MG TAB PO PRN (22:04)
[2021-01-14] MEDS: Aspirin 81 mg Enteric Coated Tablet PO SCH (08:14)
[2021-01-14] MEDS: metFORMIN 500 MG TAB PO SCH ×2 (08:18→17:33)
[2021-01-14] MEDS: Ferrous Sulfate 325 MG TAB PO SCH ×2 (08:18→21:16)
[2021-01-14] MEDS: Furosemide 20 MG TAB PO SCH (08:18)
[2021-01-14] MEDS: Escitalopram Oxalate 10 mg Tablet PO SCH (08:19)
[2021-01-14] MEDS: Carvedilol 6.25 MG TAB PO SCH ×2 (08:19→17:33)
[2021-01-14] MEDS: Gabapentin 300 MG CAP PO SCH ×2 (08:19→21:15)
[2021-01-14] MEDS: Spironolactone 25 MG TAB PO SCH (08:20)
[2021-01-14] MEDS: HYDROcodone/Acetaminophen 5/325 mg Tablet PO PRN (12:57)
[2021-01-14] MEDS: Lantus 1000 UNITS/10 ML VIAL SC SCH (21:14)
[2021-01-14] MEDS: Lisinopril 10 MG TAB PO SCH (21:15)
[2021-01-14] MEDS: Simvastatin 10 MG TAB PO SCH (21:15)
[2021-01-14] MEDS: Clopidogrel Bisulfate 75 MG TAB PO SCH (21:15)
[2021-01-14] MEDS: Zolpidem Tartrate 5 MG TAB PO PRN (21:16)
[2021-01-15] MEDS: Furosemide 20 MG TAB PO SCH (08:21)
[2021-01-15] MEDS: metFORMIN 500 MG TAB PO SCH ×2 (08:22→17:10)
[2021-01-15] MEDS: Carvedilol 6.25 MG TAB PO SCH ×2 (08:22→17:10)
[2021-01-15] MEDS: Spironolactone 25 MG TAB PO SCH (08:22)
[2021-01-15] MEDS: Aspirin 81 mg Enteric Coated Tablet PO SCH (08:23)
[2021-01-15] MEDS: Gabapentin 300 MG CAP PO SCH ×2 (08:23→20:51)
[2021-01-15] MEDS: Ferrous Sulfate 325 MG TAB PO SCH ×2 (08:23→20:51)
[2021-01-15] MEDS: Escitalopram Oxalate 10 mg Tablet PO SCH (08:23)
[2021-01-15] MEDS: HYDROcodone/Acetaminophen 5/325 mg Tablet PO PRN ×2 (17:10→22:48)
[2021-01-15] MEDS: Simvastatin 10 MG TAB PO SCH (20:50)
[2021-01-15] MEDS: Lisinopril 10 MG TAB PO SCH (20:50)
[2021-01-15] MEDS: Zolpidem Tartrate 5 MG TAB PO PRN (20:50)
[2021-01-15] MEDS: Lantus 1000 UNITS/10 ML VIAL SC SCH (20:50)
[2021-01-15] MEDS: Clopidogrel Bisulfate 75 MG TAB PO SCH (20:51)
[2021-01-16] MEDS: Aspirin 81 mg Enteric Coated Tablet PO SCH (08:32)
[2021-01-16] MEDS: Carvedilol 6.25 MG TAB PO SCH ×2 (08:32→17:06)
[2021-01-16] MEDS: Escitalopram Oxalate 10 mg Tablet PO SCH (08:32)
[2021-01-16] MEDS: Spironolactone 25 MG TAB PO SCH (08:32)
[2021-01-16] MEDS: Gabapentin 300 MG CAP PO SCH ×2 (08:33→21:02)
[2021-01-16] MEDS: Furosemide 20 MG TAB PO SCH (08:33)
[2021-01-16] MEDS: Ferrous Sulfate 325 MG TAB PO SCH ×2 (08:33→21:01)
[2021-01-16] MEDS: metFORMIN 500 MG TAB PO SCH ×2 (08:33→17:06)
[2021-01-16] MEDS: Acetaminophen 500 MG TAB PO PRN (10:01)
[2021-01-16] MEDS: HYDROcodone/Acetaminophen 5/325 mg Tablet PO PRN ×2 (11:28→22:05)
[2021-01-16] MEDS: Lisinopril 10 MG TAB PO SCH (21:01)
[2021-01-16] MEDS: Clopidogrel Bisulfate 75 MG TAB PO SCH (21:01)
[2021-01-16] MEDS: Simvastatin 10 MG TAB PO SCH (21:01)
[2021-01-16] MEDS: Lantus 1000 UNITS/10 ML VIAL SC SCH (21:03)
[2021-01-16] MEDS: Zolpidem Tartrate 5 MG TAB PO PRN (22:05)
[2021-01-17] MEDS: Ferrous Sulfate 325 MG TAB PO SCH ×2 (09:40→20:35)
[2021-01-17] MEDS: metFORMIN 500 MG TAB PO SCH ×2 (09:40→16:10)
[2021-01-17] MEDS: Carvedilol 6.25 MG TAB PO SCH ×2 (09:40→16:10)
[2021-01-17] MEDS: Aspirin 81 mg Enteric Coated Tablet PO SCH (09:40)
[2021-01-17] MEDS: Furosemide 20 MG TAB PO SCH (09:40)
[2021-01-17] MEDS: Spironolactone 25 MG TAB PO SCH (09:41)
[2021-01-17] MEDS: Gabapentin 300 MG CAP PO SCH ×2 (09:41→20:35)
[2021-01-17] MEDS: Escitalopram Oxalate 10 mg Tablet PO SCH (09:41)
[2021-01-17] MEDS: HYDROcodone/Acetaminophen 5/325 mg Tablet PO PRN ×2 (16:10→21:58)
[2021-01-17] MEDS: Lisinopril 10 MG TAB PO SCH (20:35)
[2021-01-17] MEDS: Clopidogrel Bisulfate 75 MG TAB PO SCH (20:35)
[2021-01-17] MEDS: Simvastatin 10 MG TAB PO SCH (20:35)
[2021-01-17] MEDS: Lantus 1000 UNITS/10 ML VIAL SC SCH (20:38)
[2021-01-17] MEDS: Zolpidem Tartrate 5 MG TAB PO PRN (21:58)
[2021-01-18] MEDS: Acetaminophen 500 MG TAB PO PRN (07:33)
[2021-01-18] MEDS: Furosemide 20 MG TAB PO SCH (07:34)
[2021-01-18] MEDS: Carvedilol 6.25 MG TAB PO SCH ×2 (08:32→16:20)
[2021-01-18] MEDS: Aspirin 81 mg Enteric Coated Tablet PO SCH (08:32)
[2021-01-18] MEDS: Ferrous Sulfate 325 MG TAB PO SCH ×2 (08:32→21:12)
[2021-01-18] MEDS: Spironolactone 25 MG TAB PO SCH (08:32)
[2021-01-18] MEDS: metFORMIN 500 MG TAB PO SCH ×2 (08:32→16:19)
[2021-01-18] MEDS: Gabapentin 300 MG CAP PO SCH ×2 (08:32→21:13)
[2021-01-18] MEDS: Escitalopram Oxalate 10 mg Tablet PO SCH (08:32)
[2021-01-18] MEDS: HYDROcodone/Acetaminophen 5/325 mg Tablet PO PRN ×2 (16:20→22:02)
[2021-01-18] MEDS: Clopidogrel Bisulfate 75 MG TAB PO SCH (21:12)
[2021-01-18] MEDS: Simvastatin 10 MG TAB PO SCH (21:13)
[2021-01-18] MEDS: Lisinopril 10 MG TAB PO SCH (21:13)
[2021-01-18] MEDS: Lantus 1000 UNITS/10 ML VIAL SC SCH (21:20)
[2021-01-18] MEDS: Zolpidem Tartrate 5 MG TAB PO PRN (22:01)
[2021-01-19] MEDS: Spironolactone 25 MG TAB PO SCH (08:22)
[2021-01-19] MEDS: metFORMIN 500 MG TAB PO SCH ×2 (08:22→17:02)
[2021-01-19] MEDS: Carvedilol 6.25 MG TAB PO SCH ×2 (08:22→17:03)
[2021-01-19] MEDS: Aspirin 81 mg Enteric Coated Tablet PO SCH (08:22)
[2021-01-19] MEDS: Furosemide 20 MG TAB PO SCH (08:22)
[2021-01-19] MEDS: Escitalopram Oxalate 10 mg Tablet PO SCH (08:22)
[2021-01-19] MEDS: Ferrous Sulfate 325 MG TAB PO SCH ×2 (08:22→20:53)
[2021-01-19] MEDS: Acetaminophen 500 MG TAB PO PRN (08:23)
[2021-01-19] MEDS: Gabapentin 300 MG CAP PO SCH ×2 (08:24→20:54)
[2021-01-19] MEDS: Simvastatin 10 MG TAB PO SCH (20:53)
[2021-01-19] MEDS: Clopidogrel Bisulfate 75 MG TAB PO SCH (20:54)
[2021-01-19] MEDS: Lisinopril 10 MG TAB PO SCH (20:55)
[2021-01-19] MEDS: Lantus 1000 UNITS/10 ML VIAL SC SCH (20:56)
[2021-01-19] MEDS: Zolpidem Tartrate 5 MG TAB PO PRN (22:06)
[2021-01-19] MEDS: HYDROcodone/Acetaminophen 5/325 mg Tablet PO PRN (22:06)
[2021-01-20] MEDS: Aspirin 81 mg Enteric Coated Tablet PO SCH (08:03)
[2021-01-20] MEDS: Gabapentin 300 MG CAP PO SCH ×2 (08:03→21:15)
[2021-01-20] MEDS: Carvedilol 6.25 MG TAB PO SCH ×2 (08:05→17:37)
[2021-01-20] MEDS: Ferrous Sulfate 325 MG TAB PO SCH ×2 (08:05→21:14)
[2021-01-20] MEDS: metFORMIN 500 MG TAB PO SCH ×2 (08:05→17:37)
[2021-01-20] MEDS: Spironolactone 25 MG TAB PO SCH (08:05)
[2021-01-20] MEDS: Escitalopram Oxalate 10 mg Tablet PO SCH (08:05)
[2021-01-20] MEDS: Furosemide 20 MG TAB PO SCH (08:06)
[2021-01-20] MEDS: HumaLOG 300 UNITS/3 ML VIAL SC PRN (12:03)
[2021-01-20] MEDS: Acetaminophen 500 MG TAB PO PRN (12:13)
[2021-01-20] MEDS ORDERED: Sulfameth/Trimethoprim DS 800-160mg TAB PO SCH (13:30)
[2021-01-20] MEDS: Lisinopril 10 MG TAB PO SCH (21:14)
[2021-01-20] MEDS: Sulfameth/Trimethoprim DS 800-160mg TAB PO SCH (21:14)
[2021-01-20] MEDS: Simvastatin 10 MG TAB PO SCH (21:14)
[2021-01-20] MEDS: Clopidogrel Bisulfate 75 MG TAB PO SCH (21:14)
[2021-01-20] MEDS: Lantus 1000 UNITS/10 ML VIAL SC SCH (21:17)
[2021-01-20] MEDS: HYDROcodone/Acetaminophen 5/325 mg Tablet PO PRN (22:07)
[2021-01-20] MEDS: Zolpidem Tartrate 5 MG TAB PO PRN (22:08)
[2021-01-21] MEDS: Escitalopram Oxalate 10 mg Tablet PO SCH (08:16)
[2021-01-21] MEDS: Gabapentin 300 MG CAP PO SCH ×2 (08:17→20:29)
[2021-01-21] MEDS: Aspirin 81 mg Enteric Coated Tablet PO SCH (08:17)
[2021-01-21] MEDS: metFORMIN 500 MG TAB PO SCH ×2 (08:17→17:20)
[2021-01-21] MEDS: Furosemide 20 MG TAB PO SCH (08:17)
[2021-01-21] MEDS: Sulfameth/Trimethoprim DS 800-160mg TAB PO SCH ×2 (08:17→20:28)
[2021-01-21] MEDS: Ferrous Sulfate 325 MG TAB PO SCH ×2 (08:17→20:28)
[2021-01-21] MEDS: Carvedilol 6.25 MG TAB PO SCH ×2 (08:17→17:20)
[2021-01-21] MEDS: Spironolactone 25 MG TAB PO SCH (08:17)
[2021-01-21] MEDS: Acetaminophen 500 MG TAB PO PRN (15:58)
[2021-01-21] MEDS: Simvastatin 10 MG TAB PO SCH (20:29)
[2021-01-21] MEDS: Clopidogrel Bisulfate 75 MG TAB PO SCH (20:29)
[2021-01-21] MEDS: Lisinopril 10 MG TAB PO SCH (20:29)
[2021-01-21] MEDS: Lantus 1000 UNITS/10 ML VIAL SC SCH (20:31)
[2021-01-21] MEDS: Zolpidem Tartrate 5 MG TAB PO PRN (22:01)
[2021-01-21] MEDS: HYDROcodone/Acetaminophen 5/325 mg Tablet PO PRN (22:01)
[2021-01-22] MEDS: Spironolactone 25 MG TAB PO SCH (08:11)
[2021-01-22] MEDS: Escitalopram Oxalate 10 mg Tablet PO SCH (08:11)
[2021-01-22] MEDS: metFORMIN 500 MG TAB PO SCH ×2 (08:11→17:35)
[2021-01-22] MEDS: Carvedilol 6.25 MG TAB PO SCH ×2 (08:11→17:35)
[2021-01-22] MEDS: Furosemide 20 MG TAB PO SCH (08:11)
[2021-01-22] MEDS: Aspirin 81 mg Enteric Coated Tablet PO SCH (08:11)
[2021-01-22] MEDS: Ferrous Sulfate 325 MG TAB PO SCH ×2 (08:11→20:19)
[2021-01-22] MEDS: Sulfameth/Trimethoprim DS 800-160mg TAB PO SCH ×2 (08:11→20:19)
[2021-01-22] MEDS: Enoxaparin Sodium 40 MG/0.4 ML SYRINGE SC SCH (08:12)
[2021-01-22] MEDS: Gabapentin 300 MG CAP PO SCH ×2 (08:12→20:20)
[2021-01-22] MEDS: Acetaminophen 500 MG TAB PO PRN (08:13)
[2021-01-22] MEDS: HYDROcodone/Acetaminophen 5/325 mg Tablet PO PRN ×2 (12:34→22:03)
[2021-01-22] MEDS ORDERED: metFORMIN 500 MG TAB ONE (17:33)
[2021-01-22] MEDS: Clopidogrel Bisulfate 75 MG TAB PO SCH (20:19)
[2021-01-22] MEDS: Lisinopril 10 MG TAB PO SCH (20:19)
[2021-01-22] MEDS: Simvastatin 10 MG TAB PO SCH (20:19)
[2021-01-22] MEDS: Lantus 1000 UNITS/10 ML VIAL SC SCH (20:26)
[2021-01-22] MEDS: Zolpidem Tartrate 5 MG TAB PO PRN (22:03)
[2021-01-23 06:49] LABS: Anion Gap 12 mmol/L (10-20); BUN (Urea Nitrogen) 25 mg/dL (8.4-25.7); Calc. Creatinine Clearance 106 mL/min (70-130); Carbon Dioxide 20 mmol/L (23-31); Chloride 105 mmol/L (98-107); Glucose 123 mg/dL (80-115); Potassium 4.4 mmol/L (3.5-5.1); Sodium 133 mmol/L (136-145)
[2021-01-23 07:01] LABS: Hemoglobin 11.5 g/dL (14.0-18.0); Mean Corpuscular HGB CONC 30.3 g/dL (32.0-36.0); Mean Corpuscular Hemoglobin 28.9 pg (27.0-31.0); Mean Corpuscular Volume 95.3 fL (78.0-98.0); Mean Platelet Volume 6.3 fL (7.4-10.4); Platelet Count 243 thou/uL (130-400); RBC Distribution Width 17.6 % (11.5-14.5); Red Blood Cell (RBC) Count 3.99 mill/uL (4.70-6.10); White Blood Cell (WBC) Count 5.7 thou/uL (4.8-10.8)
[2021-01-23 07:02] LABS: Eosinophils 1 % (0-10); Lymphocytes 26 % (21-51); MDiff Complete? YES; Monocytes 17 % (0-10); Neutrophil 56 % (42-75); Platelet Morphology Comment Appears Adequate
[2021-01-23] MEDS ORDERED: metFORMIN 500 MG TAB ONE (08:13)
[2021-01-23] MEDS: Ferrous Sulfate 325 MG TAB PO SCH ×2 (08:20→20:24)
[2021-01-23] MEDS: Aspirin 81 mg Enteric Coated Tablet PO SCH (08:20)
[2021-01-23] MEDS: Spironolactone 25 MG TAB PO SCH (08:20)
[2021-01-23] MEDS: Sulfameth/Trimethoprim DS 800-160mg TAB PO SCH ×2 (08:20→20:23)
[2021-01-23] MEDS: Furosemide 20 MG TAB PO SCH (08:20)
[2021-01-23] MEDS: Escitalopram Oxalate 10 mg Tablet PO SCH (08:20)
[2021-01-23] MEDS: metFORMIN 500 MG TAB PO SCH ×2 (08:20→17:27)
[2021-01-23] MEDS: Enoxaparin Sodium 40 MG/0.4 ML SYRINGE SC SCH (08:21)
[2021-01-23] MEDS: Gabapentin 300 MG CAP PO SCH ×2 (08:21→20:23)
[2021-01-23] MEDS: Carvedilol 6.25 MG TAB PO SCH ×2 (08:21→17:27)
[2021-01-23] MEDS: HYDROcodone/Acetaminophen 5/325 mg Tablet PO PRN ×2 (08:22→21:29)
[2021-01-23] MEDS: Lisinopril 10 MG TAB PO SCH (20:23)
[2021-01-23] MEDS: Simvastatin 10 MG TAB PO SCH (20:23)
[2021-01-23] MEDS: Clopidogrel Bisulfate 75 MG TAB PO SCH (20:24)
[2021-01-23] MEDS: Lantus 1000 UNITS/10 ML VIAL SC SCH (20:27)
[2021-01-23] MEDS: Zolpidem Tartrate 5 MG TAB PO PRN (21:29)
[2021-01-24] MEDS: Sulfameth/Trimethoprim DS 800-160mg TAB PO SCH ×2 (08:05→20:52)
[2021-01-24] MEDS: Carvedilol 6.25 MG TAB PO SCH ×2 (08:05→17:42)
[2021-01-24] MEDS: Gabapentin 300 MG CAP PO SCH ×2 (08:06→20:51)
[2021-01-24] MEDS: Furosemide 20 MG TAB PO SCH (08:07)
[2021-01-24] MEDS: Ferrous Sulfate 325 MG TAB PO SCH ×2 (08:07→20:52)
[2021-01-24] MEDS: Escitalopram Oxalate 10 mg Tablet PO SCH (08:07)
[2021-01-24] MEDS: metFORMIN 500 MG TAB PO SCH ×2 (08:07→17:42)
[2021-01-24] MEDS: Enoxaparin Sodium 40 MG/0.4 ML SYRINGE SC SCH (08:07)
[2021-01-24] MEDS: Spironolactone 25 MG TAB PO SCH (08:07)
[2021-01-24] MEDS: Aspirin 81 mg Enteric Coated Tablet PO SCH (08:07)
[2021-01-24] MEDS: Acetaminophen 500 MG TAB PO PRN (08:10)
[2021-01-24] MEDS: Lantus 1000 UNITS/10 ML VIAL SC SCH (20:50)
[2021-01-24] MEDS: HYDROcodone/Acetaminophen 5/325 mg Tablet PO PRN (20:50)
[2021-01-24] MEDS: Simvastatin 10 MG TAB PO SCH (20:52)
[2021-01-24] MEDS: Zolpidem Tartrate 5 MG TAB PO PRN (20:53)
[2021-01-24] MEDS: Lisinopril 10 MG TAB PO SCH (20:53)
[2021-01-24] MEDS: Clopidogrel Bisulfate 75 MG TAB PO SCH (20:53)
[2021-01-25] MEDS: Gabapentin 300 MG CAP PO SCH ×2 (08:35→20:53)
[2021-01-25] MEDS: Sulfameth/Trimethoprim DS 800-160mg TAB PO SCH ×2 (08:35→20:53)
[2021-01-25] MEDS: Carvedilol 6.25 MG TAB PO SCH ×2 (08:35→16:52)
[2021-01-25] MEDS: Aspirin 81 mg Enteric Coated Tablet PO SCH (08:36)
[2021-01-25] MEDS: Ferrous Sulfate 325 MG TAB PO SCH ×2 (08:36→20:53)
[2021-01-25] MEDS: Furosemide 20 MG TAB PO SCH (08:36)
[2021-01-25] MEDS: metFORMIN 500 MG TAB PO SCH ×2 (08:36→16:52)
[2021-01-25] MEDS: Spironolactone 25 MG TAB PO SCH (08:36)
[2021-01-25] MEDS: Escitalopram Oxalate 10 mg Tablet PO SCH (08:36)
[2021-01-25] MEDS: Enoxaparin Sodium 40 MG/0.4 ML SYRINGE SC SCH (08:36)
[2021-01-25] MEDS: Milk Of Magnesia 30 ML UDCUP PO PRN (08:42)
[2021-01-25] MEDS: Lantus 1000 UNITS/10 ML VIAL SC SCH (20:51)
[2021-01-25] MEDS: Lisinopril 10 MG TAB PO SCH (20:52)
[2021-01-25] MEDS: Clopidogrel Bisulfate 75 MG TAB PO SCH (20:53)
[2021-01-25] MEDS: Zolpidem Tartrate 5 MG TAB PO PRN (20:53)
[2021-01-25] MEDS: Simvastatin 10 MG TAB PO SCH (20:53)
[2021-01-25] MEDS: HYDROcodone/Acetaminophen 5/325 mg Tablet PO PRN (20:54)
[2021-01-26] MEDS: Milk Of Magnesia 30 ML UDCUP PO PRN (08:31)
[2021-01-26] MEDS: Carvedilol 6.25 MG TAB PO SCH ×2 (08:32→16:44)
[2021-01-26] MEDS: Aspirin 81 mg Enteric Coated Tablet PO SCH (08:32)
[2021-01-26] MEDS: Sulfameth/Trimethoprim DS 800-160mg TAB PO SCH ×2 (08:32→20:57)
[2021-01-26] MEDS: Spironolactone 25 MG TAB PO SCH (08:32)
[2021-01-26] MEDS: Escitalopram Oxalate 10 mg Tablet PO SCH (08:32)
[2021-01-26] MEDS: metFORMIN 500 MG TAB PO SCH ×2 (08:33→16:44)
[2021-01-26] MEDS: Ferrous Sulfate 325 MG TAB PO SCH ×2 (08:33→20:57)
[2021-01-26] MEDS: Enoxaparin Sodium 40 MG/0.4 ML SYRINGE SC SCH (08:33)
[2021-01-26] MEDS: Acetaminophen 500 MG TAB PO PRN (08:33)
[2021-01-26] MEDS: Furosemide 20 MG TAB PO SCH (08:33)
[2021-01-26] MEDS: Gabapentin 300 MG CAP PO SCH ×2 (08:35→20:58)
[2021-01-26] MEDS: HYDROcodone/Acetaminophen 5/325 mg Tablet PO PRN ×2 (15:46→20:59)
[2021-01-26] MEDS: Lantus 1000 UNITS/10 ML VIAL SC SCH (20:56)
[2021-01-26] MEDS: Zolpidem Tartrate 5 MG TAB PO PRN (20:57)
[2021-01-26] MEDS: Lisinopril 10 MG TAB PO SCH (20:58)
[2021-01-26] MEDS: Clopidogrel Bisulfate 75 MG TAB PO SCH (20:58)
[2021-01-26] MEDS: Simvastatin 10 MG TAB PO SCH (20:59)
[2021-01-27] MEDS: Gabapentin 300 MG CAP PO SCH ×2 (08:24→20:21)
[2021-01-27] MEDS: Sulfameth/Trimethoprim DS 800-160mg TAB PO SCH ×2 (08:25→20:21)
[2021-01-27] MEDS: Ferrous Sulfate 325 MG TAB PO SCH ×2 (08:25→20:21)
[2021-01-27] MEDS: metFORMIN 500 MG TAB PO SCH ×2 (08:25→16:35)
[2021-01-27] MEDS: Spironolactone 25 MG TAB PO SCH (08:25)
[2021-01-27] MEDS: Aspirin 81 mg Enteric Coated Tablet PO SCH (08:25)
[2021-01-27] MEDS: Escitalopram Oxalate 10 mg Tablet PO SCH (08:25)
[2021-01-27] MEDS: Enoxaparin Sodium 40 MG/0.4 ML SYRINGE SC SCH (08:25)
[2021-01-27] MEDS: Furosemide 20 MG TAB PO SCH (08:25)
[2021-01-27] MEDS: Carvedilol 6.25 MG TAB PO SCH ×2 (08:25→16:35)
[2021-01-27] MEDS: Lisinopril 10 MG TAB PO SCH (20:21)
[2021-01-27] MEDS: Clopidogrel Bisulfate 75 MG TAB PO SCH (20:21)
[2021-01-27] MEDS: Simvastatin 10 MG TAB PO SCH (20:21)
[2021-01-27] MEDS: Lantus 1000 UNITS/10 ML VIAL SC SCH (20:22)
[2021-01-27] MEDS: Milk Of Magnesia 30 ML UDCUP PO PRN (20:26)
[2021-01-27] MEDS: HYDROcodone/Acetaminophen 5/325 mg Tablet PO PRN (22:13)
[2021-01-27] MEDS: Zolpidem Tartrate 5 MG TAB PO PRN (22:14)
[2021-01-28] MEDS: Furosemide 20 MG TAB PO SCH (07:58)
[2021-01-28] MEDS: Enoxaparin Sodium 40 MG/0.4 ML SYRINGE SC SCH (08:22)
[2021-01-28] MEDS: Aspirin 81 mg Enteric Coated Tablet PO SCH (08:23)
[2021-01-28] MEDS: Gabapentin 300 MG CAP PO SCH ×2 (08:23→20:33)
[2021-01-28] MEDS: Carvedilol 6.25 MG TAB PO SCH ×2 (08:24→17:28)
[2021-01-28] MEDS: Ferrous Sulfate 325 MG TAB PO SCH ×2 (08:24→20:34)
[2021-01-28] MEDS: Spironolactone 25 MG TAB PO SCH (08:24)
[2021-01-28] MEDS: Escitalopram Oxalate 10 mg Tablet PO SCH (08:24)
[2021-01-28] MEDS: Sulfameth/Trimethoprim DS 800-160mg TAB PO SCH ×2 (08:24→20:33)
[2021-01-28] MEDS: metFORMIN 500 MG TAB PO SCH ×2 (08:25→17:27)
[2021-01-28] MEDS: Acetaminophen 500 MG TAB PO PRN (08:33)
[2021-01-28] MEDS ORDERED: Iopamidol 370 76% 100 ML VIAL ONE (09:00)
[2021-01-28] MEDS: Milk Of Magnesia 30 ML UDCUP PO PRN (09:52)
[2021-01-28] MEDS ORDERED: Bisacodyl 10 MG SUPP PR PRN (13:00)
[2021-01-28] MEDS: Lisinopril 10 MG TAB PO SCH (20:33)
[2021-01-28] MEDS: Simvastatin 10 MG TAB PO SCH (20:33)
[2021-01-28] MEDS: Clopidogrel Bisulfate 75 MG TAB PO SCH (20:33)
[2021-01-28] MEDS: Lantus 1000 UNITS/10 ML VIAL SC SCH (20:34)
[2021-01-28] MEDS: HYDROcodone/Acetaminophen 5/325 mg Tablet PO PRN (22:07)
[2021-01-28] MEDS: Zolpidem Tartrate 5 MG TAB PO PRN (22:08)
[2021-01-29] MEDS: Carvedilol 6.25 MG TAB PO SCH ×2 (08:03→17:32)
[2021-01-29] MEDS: metFORMIN 500 MG TAB PO SCH ×2 (08:03→17:32)
[2021-01-29] MEDS: Furosemide 20 MG TAB PO SCH (08:03)
[2021-01-29] MEDS: Escitalopram Oxalate 10 mg Tablet PO SCH (08:04)
[2021-01-29] MEDS: Aspirin 81 mg Enteric Coated Tablet PO SCH (08:04)
[2021-01-29] MEDS: Enoxaparin Sodium 40 MG/0.4 ML SYRINGE SC SCH (08:04)
[2021-01-29] MEDS: Spironolactone 25 MG TAB PO SCH (08:04)
[2021-01-29] MEDS: Gabapentin 300 MG CAP PO SCH ×2 (08:05→20:30)
[2021-01-29] MEDS: Ferrous Sulfate 325 MG TAB PO SCH ×2 (08:05→20:30)
[2021-01-29] MEDS: Sulfameth/Trimethoprim DS 800-160mg TAB PO SCH ×2 (08:06→20:30)
[2021-01-29] MEDS: Simvastatin 10 MG TAB PO SCH (20:30)
[2021-01-29] MEDS: Lisinopril 10 MG TAB PO SCH (20:30)
[2021-01-29] MEDS: Lantus 1000 UNITS/10 ML VIAL SC SCH (20:31)
[2021-01-29] MEDS: Clopidogrel Bisulfate 75 MG TAB PO SCH (20:31)
[2021-01-29] MEDS: HYDROcodone/Acetaminophen 5/325 mg Tablet PO PRN (22:31)
[2021-01-29] MEDS: Zolpidem Tartrate 5 MG TAB PO PRN (22:31)
[2021-01-30] MEDS: Spironolactone 25 MG TAB PO SCH (08:59)
[2021-01-30] MEDS: Aspirin 81 mg Enteric Coated Tablet PO SCH (08:59)
[2021-01-30] MEDS: Carvedilol 6.25 MG TAB PO SCH ×2 (08:59→17:03)
[2021-01-30] MEDS: metFORMIN 500 MG TAB PO SCH ×2 (08:59→17:03)
[2021-01-30] MEDS: Furosemide 20 MG TAB PO SCH (08:59)
[2021-01-30] MEDS: Enoxaparin Sodium 40 MG/0.4 ML SYRINGE SC SCH (08:59)
[2021-01-30] MEDS: Gabapentin 300 MG CAP PO SCH ×2 (09:00→21:49)
[2021-01-30] MEDS: Ferrous Sulfate 325 MG TAB PO SCH ×2 (09:00→21:48)
[2021-01-30] MEDS: Escitalopram Oxalate 10 mg Tablet PO SCH (09:00)
[2021-01-30] MEDS: Sulfameth/Trimethoprim DS 800-160mg TAB PO SCH ×2 (09:01→21:49)
[2021-01-30 14:14] LABS: #Basophils 0.1 thou/uL (0.0-0.2); #Eosinphils 0.2 thou/uL (0.0-0.7); #Lymphocytes 1.2 thou/uL (1.20-3.40); #Monocytes 0.7 thou/uL (0.11-0.59); #Neutrophils 4.5 thou/uL (1.40-6.50); %Basophils 1.7 % (0.0-1.0); %Eosinophils 3.4 % (0.0-10.0); %Lymphocytes 17.4 % (21.0-51.0); %Monocytes 10.5 % (0.0-10.0); %Neutrophils 67.1 % (42.0-75.0); Hemoglobin 12.3 g/dL (14.0-18.0); Mean Corpuscular HGB CONC 31.4 g/dL (32.0-36.0); Mean Corpuscular Hemoglobin 29.5 pg (27.0-31.0); Mean Platelet Volume 6.2 fL (7.4-10.4); Platelet Count 308 thou/uL (130-400); RBC Distribution Width 16.7 % (11.5-14.5); Red Blood Cell (RBC) Count 4.17 mill/uL (4.70-6.10); White Blood Cell (WBC) Count 6.7 thou/uL (4.8-10.8)
[2021-01-30 14:20] LABS: Anion Gap 15 mmol/L (10-20); BUN (Urea Nitrogen) 31 mg/dL (8.4-25.7); Calc. Creatinine Clearance 59 mL/min (70-130); Calcium 9.2 mg/dL (7.8-10.44); Carbon Dioxide 22 mmol/L (23-31); Chloride 101 mmol/L (98-107); Glucose 107 mg/dL (80-115); Potassium 5.9 mmol/L (3.5-5.1); Sodium 132 mmol/L (136-145)
[2021-01-30] MEDS: Lisinopril 10 MG TAB PO SCH (21:48)
[2021-01-30] MEDS: Clopidogrel Bisulfate 75 MG TAB PO SCH (21:49)
[2021-01-30] MEDS: Zolpidem Tartrate 5 MG TAB PO PRN (21:49)
[2021-01-30] MEDS: Lantus 1000 UNITS/10 ML VIAL SC SCH (21:49)
[2021-01-30] MEDS: Simvastatin 10 MG TAB PO SCH (21:49)
[2021-01-31] MEDS: Furosemide 20 MG TAB PO SCH (08:18)
[2021-01-31] MEDS: Gabapentin 300 MG CAP PO SCH ×2 (08:48→20:07)
[2021-01-31] MEDS: Enoxaparin Sodium 40 MG/0.4 ML SYRINGE SC SCH (08:49)
[2021-01-31] MEDS: Carvedilol 6.25 MG TAB PO SCH ×2 (08:49→17:21)
[2021-01-31] MEDS: Escitalopram Oxalate 10 mg Tablet PO SCH (08:49)
[2021-01-31] MEDS: Acetaminophen 500 MG TAB PO PRN ×2 (08:50→21:53)
[2021-01-31] MEDS: Ferrous Sulfate 325 MG TAB PO SCH ×2 (08:50→20:09)
[2021-01-31] MEDS: Spironolactone 25 MG TAB PO SCH (08:51)
[2021-01-31] MEDS: metFORMIN 500 MG TAB PO SCH ×2 (08:51→17:21)
[2021-01-31] MEDS: Aspirin 81 mg Enteric Coated Tablet PO SCH (08:51)
[2021-01-31] MEDS ORDERED: Sodium Chloride 0.9% 1,000 ML IV SCH (13:15)
[2021-01-31] MEDS: Clopidogrel Bisulfate 75 MG TAB PO SCH (20:09)
[2021-01-31] MEDS: Simvastatin 10 MG TAB PO SCH (20:09)
[2021-01-31] MEDS: Lisinopril 10 MG TAB PO SCH (20:09)
[2021-01-31] MEDS: Lantus 1000 UNITS/10 ML VIAL SC SCH (20:18)
[2021-01-31] MEDS: Zolpidem Tartrate 5 MG TAB PO PRN (21:44)
[2021-01-31] MEDS ORDERED: HYDROcodone/Acetaminophen 5/325 mg Tablet PO SCH (23:00)
[2021-02-01 05:43] LABS: Anion Gap 13 mmol/L (10-20); BUN (Urea Nitrogen) 37 mg/dL (8.4-25.7); Calc. Creatinine Clearance 78 mL/min (70-130); Calcium 8.6 mg/dL (7.8-10.44); Carbon Dioxide 18 mmol/L (23-31); Chloride 107 mmol/L (98-107); Glucose 112 mg/dL (80-115); Potassium 5.2 mmol/L (3.5-5.1); Sodium 133 mmol/L (136-145)
[2021-02-01] MEDS: Aspirin 81 mg Enteric Coated Tablet PO SCH (08:25)
[2021-02-01] MEDS: Carvedilol 6.25 MG TAB PO SCH ×2 (08:25→16:22)
[2021-02-01] MEDS: Ferrous Sulfate 325 MG TAB PO SCH ×2 (08:26→21:34)
[2021-02-01] MEDS: Gabapentin 300 MG CAP PO SCH ×2 (08:26→21:36)
[2021-02-01] MEDS: Escitalopram Oxalate 10 mg Tablet PO SCH (08:28)
[2021-02-01] MEDS: Enoxaparin Sodium 40 MG/0.4 ML SYRINGE SC SCH (08:28)
[2021-02-01] MEDS: metFORMIN 500 MG TAB PO SCH ×2 (08:28→16:22)
[2021-02-01] MEDS: Furosemide 20 MG TAB PO SCH (08:28)
[2021-02-01] MEDS: Acetaminophen 500 MG TAB PO PRN (15:52)
[2021-02-01] MEDS: Zolpidem Tartrate 5 MG TAB PO PRN (21:34)
[2021-02-01] MEDS: Clopidogrel Bisulfate 75 MG TAB PO SCH (21:34)
[2021-02-01] MEDS: Lisinopril 10 MG TAB PO SCH (21:34)
[2021-02-01] MEDS: Simvastatin 10 MG TAB PO SCH (21:35)
[2021-02-01] MEDS: Gabapentin 300 MG CAP PO PRN (21:35)
[2021-02-01] MEDS: Lantus 1000 UNITS/10 ML VIAL SC SCH (21:37)
[2021-02-02] MEDS: Carvedilol 6.25 MG TAB PO SCH ×2 (08:22→17:48)
[2021-02-02] MEDS: Enoxaparin Sodium 40 MG/0.4 ML SYRINGE SC SCH (08:22)
[2021-02-02] MEDS: Gabapentin 300 MG CAP PO SCH ×2 (08:23→21:00)
[2021-02-02] MEDS: Aspirin 81 mg Enteric Coated Tablet PO SCH (08:23)
[2021-02-02] MEDS: metFORMIN 500 MG TAB PO SCH ×2 (08:23→17:48)
[2021-02-02] MEDS: Furosemide 20 MG TAB PO SCH (08:23)
[2021-02-02] MEDS: Escitalopram Oxalate 10 mg Tablet PO SCH (08:23)
[2021-02-02] MEDS: Acetaminophen 500 MG TAB PO PRN (08:24)
[2021-02-02] MEDS: Ferrous Sulfate 325 MG TAB PO SCH ×2 (08:26→20:59)
[2021-02-02] MEDS: Lisinopril 10 MG TAB PO SCH (20:59)
[2021-02-02] MEDS: Simvastatin 10 MG TAB PO SCH (20:59)
[2021-02-02] MEDS: Clopidogrel Bisulfate 75 MG TAB PO SCH (21:01)
[2021-02-02] MEDS: Lantus 1000 UNITS/10 ML VIAL SC SCH (21:01)
[2021-02-02] MEDS: Zolpidem Tartrate 5 MG TAB PO PRN (22:15)
[2021-02-02] MEDS: Gabapentin 300 MG CAP PO PRN (22:16)
[2021-02-03] MEDS: Furosemide 20 MG TAB PO SCH (08:20)
[2021-02-03] MEDS: Carvedilol 6.25 MG TAB PO SCH ×2 (08:20→17:11)
[2021-02-03] MEDS: Escitalopram Oxalate 10 mg Tablet PO SCH (08:21)
[2021-02-03] MEDS: Ferrous Sulfate 325 MG TAB PO SCH ×2 (08:21→21:35)
[2021-02-03] MEDS: Enoxaparin Sodium 40 MG/0.4 ML SYRINGE SC SCH (08:21)
[2021-02-03] MEDS: metFORMIN 500 MG TAB PO SCH ×2 (08:21→17:11)
[2021-02-03] MEDS: Aspirin 81 mg Enteric Coated Tablet PO SCH (08:21)
[2021-02-03] MEDS: Gabapentin 300 MG CAP PO SCH ×2 (08:21→21:33)
[2021-02-03] MEDS: HumaLOG 300 UNITS/3 ML VIAL SC PRN (17:11)
[2021-02-03] MEDS: Clopidogrel Bisulfate 75 MG TAB PO SCH (21:34)
[2021-02-03] MEDS: Lisinopril 10 MG TAB PO SCH (21:34)
[2021-02-03] MEDS: Simvastatin 10 MG TAB PO SCH (21:35)
[2021-02-03] MEDS: Zolpidem Tartrate 5 MG TAB PO PRN (21:35)
[2021-02-03] MEDS: Gabapentin 300 MG CAP PO PRN (21:35)
[2021-02-03] MEDS: Lantus 1000 UNITS/10 ML VIAL SC SCH (21:36)
[2021-02-04] MEDS: Acetaminophen 500 MG TAB PO PRN (01:27)
[2021-02-04] MEDS: Furosemide 20 MG TAB PO SCH (08:12)
[2021-02-04] MEDS: metFORMIN 500 MG TAB PO SCH ×2 (08:12→16:57)
[2021-02-04] MEDS: Carvedilol 6.25 MG TAB PO SCH ×2 (08:12→16:57)
[2021-02-04] MEDS: Aspirin 81 mg Enteric Coated Tablet PO SCH (08:13)
[2021-02-04] MEDS: Escitalopram Oxalate 10 mg Tablet PO SCH (08:13)
[2021-02-04] MEDS: Ferrous Sulfate 325 MG TAB PO SCH ×2 (08:13→21:41)
[2021-02-04] MEDS: Enoxaparin Sodium 40 MG/0.4 ML SYRINGE SC SCH (08:13)
[2021-02-04] MEDS: Gabapentin 300 MG CAP PO SCH ×3 (08:14→21:42)
[2021-02-04] MEDS ORDERED: Iopamidol 370 76% 100 ML VIAL ONE (09:00)
[2021-02-04] MEDS: Lisinopril 10 MG TAB PO SCH (21:40)
[2021-02-04] MEDS: Clopidogrel Bisulfate 75 MG TAB PO SCH (21:40)
[2021-02-04] MEDS: Simvastatin 10 MG TAB PO SCH (21:41)
[2021-02-04] MEDS: Zolpidem Tartrate 5 MG TAB PO PRN (21:41)
[2021-02-04] MEDS: Lantus 1000 UNITS/10 ML VIAL SC SCH (21:42)
[2021-02-05 05:36] LABS: Anion Gap 13 mmol/L (10-20); BUN (Urea Nitrogen) 31 mg/dL (8.4-25.7); Calc. Creatinine Clearance 106 mL/min (70-130); Calcium 9.2 mg/dL (7.8-10.44); Carbon Dioxide 22 mmol/L (23-31); Chloride 106 mmol/L (98-107); Glucose 124 mg/dL (80-115); Potassium 4.5 mmol/L (3.5-5.1); Sodium 136 mmol/L (136-145)
[2021-02-05] MEDS: Enoxaparin Sodium 40 MG/0.4 ML SYRINGE SC SCH (08:38)
[2021-02-05] MEDS: Gabapentin 300 MG CAP PO SCH ×2 (08:39→21:36)
[2021-02-05] MEDS: Escitalopram Oxalate 10 mg Tablet PO SCH (08:39)
[2021-02-05] MEDS: Aspirin 81 mg Enteric Coated Tablet PO SCH (08:39)
[2021-02-05] MEDS: metFORMIN 500 MG TAB PO SCH ×2 (08:41→17:15)
[2021-02-05] MEDS: Carvedilol 6.25 MG TAB PO SCH ×2 (08:41→17:15)
[2021-02-05] MEDS: Ferrous Sulfate 325 MG TAB PO SCH ×2 (08:41→20:54)
[2021-02-05] MEDS: Furosemide 20 MG TAB PO SCH (08:41)
[2021-02-05] MEDS: HumaLOG 300 UNITS/3 ML VIAL SC PRN (11:58)
[2021-02-05] MEDS ORDERED: Cyclobenzaprine 10 MG TAB PO PRN (12:29)
[2021-02-05] MEDS: Clopidogrel Bisulfate 75 MG TAB PO SCH (20:54)
[2021-02-05] MEDS: Lisinopril 10 MG TAB PO SCH (20:54)
[2021-02-05] MEDS: Simvastatin 10 MG TAB PO SCH (20:54)
[2021-02-05] MEDS: Lantus 1000 UNITS/10 ML VIAL SC SCH (20:55)
[2021-02-05] MEDS: Gabapentin 300 MG CAP PO PRN (21:37)
[2021-02-05] MEDS: Zolpidem Tartrate 5 MG TAB PO PRN (21:37)
[2021-02-06] MEDS: metFORMIN 500 MG TAB PO SCH ×2 (08:59→17:08)
[2021-02-06] MEDS: Gabapentin 300 MG CAP PO SCH ×2 (08:59→21:33)
[2021-02-06] MEDS: Furosemide 20 MG TAB PO SCH (08:59)
[2021-02-06] MEDS: Enoxaparin Sodium 40 MG/0.4 ML SYRINGE SC SCH (09:00)
[2021-02-06] MEDS: Carvedilol 6.25 MG TAB PO SCH ×2 (09:00→17:08)
[2021-02-06] MEDS: Aspirin 81 mg Enteric Coated Tablet PO SCH (09:00)
[2021-02-06] MEDS: Escitalopram Oxalate 10 mg Tablet PO SCH (09:00)
[2021-02-06] MEDS: Ferrous Sulfate 325 MG TAB PO SCH ×2 (09:00→20:50)
[2021-02-06] MEDS: Cyclobenzaprine 10 MG TAB PO PRN (11:32)
[2021-02-06] MEDS: HumaLOG 300 UNITS/3 ML VIAL SC PRN (11:32)
[2021-02-06] MEDS: Simvastatin 10 MG TAB PO SCH (20:50)
[2021-02-06] MEDS: Lisinopril 10 MG TAB PO SCH (20:50)
[2021-02-06] MEDS: Clopidogrel Bisulfate 75 MG TAB PO SCH (20:50)
[2021-02-06] MEDS: Lantus 1000 UNITS/10 ML VIAL SC SCH (20:51)
[2021-02-06] MEDS: Gabapentin 300 MG CAP PO PRN (21:33)
[2021-02-06] MEDS: Zolpidem Tartrate 5 MG TAB PO PRN (21:33)
[2021-02-07] MEDS: Ferrous Sulfate 325 MG TAB PO SCH ×2 (08:49→20:26)
[2021-02-07] MEDS: metFORMIN 500 MG TAB PO SCH ×2 (08:50→17:33)
[2021-02-07] MEDS: Enoxaparin Sodium 40 MG/0.4 ML SYRINGE SC SCH (08:50)
[2021-02-07] MEDS: Carvedilol 6.25 MG TAB PO SCH ×2 (08:50→17:32)
[2021-02-07] MEDS: Gabapentin 300 MG CAP PO SCH ×2 (08:50→21:12)
[2021-02-07] MEDS: Escitalopram Oxalate 10 mg Tablet PO SCH (08:50)
[2021-02-07] MEDS: Aspirin 81 mg Enteric Coated Tablet PO SCH (08:50)
[2021-02-07] MEDS: Furosemide 20 MG TAB PO SCH (08:51)
[2021-02-07] MEDS: Clopidogrel Bisulfate 75 MG TAB PO SCH (20:26)
[2021-02-07] MEDS: Lisinopril 10 MG TAB PO SCH (20:26)
[2021-02-07] MEDS: Lantus 1000 UNITS/10 ML VIAL SC SCH (20:26)
[2021-02-07] MEDS: Simvastatin 10 MG TAB PO SCH (20:26)
[2021-02-07] MEDS: Zolpidem Tartrate 5 MG TAB PO PRN (21:11)
[2021-02-07] MEDS: Gabapentin 300 MG CAP PO PRN (21:12)
[2021-02-08] MEDS: Carvedilol 6.25 MG TAB PO SCH ×2 (08:42→16:54)
[2021-02-08] MEDS: Aspirin 81 mg Enteric Coated Tablet PO SCH (08:42)
[2021-02-08] MEDS: Enoxaparin Sodium 40 MG/0.4 ML SYRINGE SC SCH (08:42)
[2021-02-08] MEDS: Furosemide 20 MG TAB PO SCH (08:42)
[2021-02-08] MEDS: metFORMIN 500 MG TAB PO SCH ×2 (08:42→16:54)
[2021-02-08] MEDS: Escitalopram Oxalate 10 mg Tablet PO SCH (08:43)
[2021-02-08] MEDS: Ferrous Sulfate 325 MG TAB PO SCH ×2 (08:43→20:09)
[2021-02-08] MEDS: Gabapentin 300 MG CAP PO SCH ×2 (08:43→21:23)
[2021-02-08] MEDS: Cyclobenzaprine 10 MG TAB PO PRN (08:47)
[2021-02-08] MEDS: HumaLOG 300 UNITS/3 ML VIAL SC PRN (11:27)
[2021-02-08] MEDS: Simvastatin 10 MG TAB PO SCH (20:09)
[2021-02-08] MEDS: Lisinopril 10 MG TAB PO SCH (20:09)
[2021-02-08] MEDS: Clopidogrel Bisulfate 75 MG TAB PO SCH (20:09)
[2021-02-08] MEDS: Lantus 1000 UNITS/10 ML VIAL SC SCH (20:10)
[2021-02-08] MEDS: Gabapentin 300 MG CAP PO PRN (21:23)
[2021-02-08] MEDS: Zolpidem Tartrate 5 MG TAB PO PRN (21:24)
[2021-02-09] MEDS: Carvedilol 6.25 MG TAB PO SCH ×2 (08:22→15:59)
[2021-02-09] MEDS: Furosemide 20 MG TAB PO SCH (08:22)
[2021-02-09] MEDS: Ferrous Sulfate 325 MG TAB PO SCH ×2 (08:23→21:48)
[2021-02-09] MEDS: Aspirin 81 mg Enteric Coated Tablet PO SCH (08:23)
[2021-02-09] MEDS: Enoxaparin Sodium 40 MG/0.4 ML SYRINGE SC SCH (08:23)
[2021-02-09] MEDS: metFORMIN 500 MG TAB PO SCH ×2 (08:23→15:59)
[2021-02-09] MEDS: Gabapentin 300 MG CAP PO SCH ×2 (08:23→21:50)
[2021-02-09] MEDS: Escitalopram Oxalate 10 mg Tablet PO SCH (08:23)
[2021-02-09] MEDS: Cyclobenzaprine 10 MG TAB PO PRN (08:24)
[2021-02-09] MEDS: HumaLOG 300 UNITS/3 ML VIAL SC PRN (11:51)
[2021-02-09] MEDS: Acetaminophen 500 MG TAB PO PRN (15:58)
[2021-02-09] MEDS: Simvastatin 10 MG TAB PO SCH (21:47)
[2021-02-09] MEDS: Zolpidem Tartrate 5 MG TAB PO PRN (21:48)
[2021-02-09] MEDS: Lisinopril 10 MG TAB PO SCH (21:48)
[2021-02-09] MEDS: Clopidogrel Bisulfate 75 MG TAB PO SCH (21:48)
[2021-02-09] MEDS: Gabapentin 300 MG CAP PO PRN (21:49)
[2021-02-09] MEDS: Lantus 1000 UNITS/10 ML VIAL SC SCH (21:53)
[2021-02-10] MEDS: Ferrous Sulfate 325 MG TAB PO SCH ×2 (08:26→21:02)
[2021-02-10] MEDS: Enoxaparin Sodium 40 MG/0.4 ML SYRINGE SC SCH (08:26)
[2021-02-10] MEDS: Gabapentin 300 MG CAP PO SCH ×2 (08:26→21:25)
[2021-02-10] MEDS: Aspirin 81 mg Enteric Coated Tablet PO SCH (08:26)
[2021-02-10] MEDS: metFORMIN 500 MG TAB PO SCH ×2 (08:28→17:02)
[2021-02-10] MEDS: Furosemide 20 MG TAB PO SCH (08:28)
[2021-02-10] MEDS: Escitalopram Oxalate 10 mg Tablet PO SCH (08:28)
[2021-02-10] MEDS: Acetaminophen 500 MG TAB PO PRN (08:28)
[2021-02-10] MEDS ORDERED: Carvedilol 25 MG TAB ONE (08:39)
[2021-02-10] MEDS: Carvedilol 6.25 MG TAB PO SCH ×2 (09:54→17:02)
[2021-02-10] MEDS: HumaLOG 300 UNITS/3 ML VIAL SC PRN (12:25)
[2021-02-10] MEDS: Simvastatin 10 MG TAB PO SCH (21:02)
[2021-02-10] MEDS: Clopidogrel Bisulfate 75 MG TAB PO SCH (21:02)
[2021-02-10] MEDS: Lisinopril 10 MG TAB PO SCH (21:02)
[2021-02-10] MEDS: Lantus 1000 UNITS/10 ML VIAL SC SCH (21:04)
[2021-02-10] MEDS: Zolpidem Tartrate 5 MG TAB PO PRN (21:25)
[2021-02-10] MEDS: Gabapentin 300 MG CAP PO PRN (21:26)
[2021-02-10] MEDS: Cyclobenzaprine 10 MG TAB PO PRN (23:41)
[2021-02-11] MEDS: Ferrous Sulfate 325 MG TAB PO SCH ×2 (08:25→20:45)
[2021-02-11] MEDS: Carvedilol 6.25 MG TAB PO SCH ×2 (08:25→16:51)
[2021-02-11] MEDS: metFORMIN 500 MG TAB PO SCH ×2 (08:25→16:50)
[2021-02-11] MEDS: Escitalopram Oxalate 10 mg Tablet PO SCH (08:25)
[2021-02-11] MEDS: Enoxaparin Sodium 40 MG/0.4 ML SYRINGE SC SCH (08:26)
[2021-02-11] MEDS: Furosemide 20 MG TAB PO SCH (08:26)
[2021-02-11] MEDS: Aspirin 81 mg Enteric Coated Tablet PO SCH (08:26)
[2021-02-11] MEDS: Acetaminophen 500 MG TAB PO PRN (08:26)
[2021-02-11] MEDS: Gabapentin 300 MG CAP PO SCH ×2 (08:27→21:59)
[2021-02-11] MEDS: Cyclobenzaprine 10 MG TAB PO PRN (16:51)
[2021-02-11] MEDS: Clopidogrel Bisulfate 75 MG TAB PO SCH (20:45)
[2021-02-11] MEDS: Lisinopril 10 MG TAB PO SCH (20:45)
[2021-02-11] MEDS: Simvastatin 10 MG TAB PO SCH (20:45)
[2021-02-11] MEDS: Lantus 1000 UNITS/10 ML VIAL SC SCH (20:45)
[2021-02-11] MEDS: Gabapentin 300 MG CAP PO PRN (21:59)
[2021-02-11] MEDS: Zolpidem Tartrate 5 MG TAB PO PRN (21:59)
[2021-02-12] MEDS: Aspirin 81 mg Enteric Coated Tablet PO SCH (08:09)
[2021-02-12] MEDS: Carvedilol 6.25 MG TAB PO SCH ×2 (08:09→16:58)
[2021-02-12] MEDS: Furosemide 20 MG TAB PO SCH (08:09)
[2021-02-12] MEDS: metFORMIN 500 MG TAB PO SCH ×2 (08:09→16:58)
[2021-02-12] MEDS: Ferrous Sulfate 325 MG TAB PO SCH ×2 (08:10→21:05)
[2021-02-12] MEDS: Enoxaparin Sodium 40 MG/0.4 ML SYRINGE SC SCH (08:10)
[2021-02-12] MEDS: Escitalopram Oxalate 10 mg Tablet PO SCH (08:10)
[2021-02-12] MEDS: Gabapentin 300 MG CAP PO SCH ×2 (08:10→21:05)
[2021-02-12] MEDS: Cyclobenzaprine 10 MG TAB PO PRN (10:10)
[2021-02-12] MEDS: Lantus 1000 UNITS/10 ML VIAL SC SCH (21:04)
[2021-02-12] MEDS: Lisinopril 10 MG TAB PO SCH (21:05)
[2021-02-12] MEDS: Clopidogrel Bisulfate 75 MG TAB PO SCH (21:05)
[2021-02-12] MEDS: Simvastatin 10 MG TAB PO SCH (21:05)
[2021-02-12] MEDS: Zolpidem Tartrate 5 MG TAB PO PRN (21:08)
[2021-02-12] MEDS: Gabapentin 300 MG CAP PO PRN (21:08)
[2021-02-13 06:16] LABS: Platelet Count 233 thou/uL (130-400)
[2021-02-13] MEDS: Furosemide 20 MG TAB PO SCH (08:18)
[2021-02-13] MEDS: Carvedilol 6.25 MG TAB PO SCH ×2 (08:18→17:32)
[2021-02-13] MEDS: Enoxaparin Sodium 40 MG/0.4 ML SYRINGE SC SCH (08:19)
[2021-02-13] MEDS: Ferrous Sulfate 325 MG TAB PO SCH ×2 (08:19→20:52)
[2021-02-13] MEDS: Aspirin 81 mg Enteric Coated Tablet PO SCH (08:19)
[2021-02-13] MEDS: metFORMIN 500 MG TAB PO SCH ×2 (08:19→17:32)
[2021-02-13] MEDS: Escitalopram Oxalate 10 mg Tablet PO SCH (08:19)
[2021-02-13] MEDS: Gabapentin 300 MG CAP PO SCH ×2 (08:20→20:52)
[2021-02-13] MEDS: Cyclobenzaprine 10 MG TAB PO PRN ×2 (08:20→18:34)
[2021-02-13] MEDS: Acetaminophen 500 MG TAB PO PRN (18:35)
[2021-02-13] MEDS: Simvastatin 10 MG TAB PO SCH (20:52)
[2021-02-13] MEDS: Clopidogrel Bisulfate 75 MG TAB PO SCH (20:52)
[2021-02-13] MEDS: Lisinopril 10 MG TAB PO SCH (20:52)
[2021-02-13] MEDS: Gabapentin 300 MG CAP PO PRN (20:55)
[2021-02-13] MEDS: Zolpidem Tartrate 5 MG TAB PO PRN (20:55)
[2021-02-13] MEDS: Lantus 1000 UNITS/10 ML VIAL SC SCH (20:55)
[2021-02-14] MEDS: Furosemide 20 MG TAB PO SCH (08:37)
[2021-02-14] MEDS: Carvedilol 6.25 MG TAB PO SCH ×2 (08:37→18:25)
[2021-02-14] MEDS: metFORMIN 500 MG TAB PO SCH ×2 (08:37→18:25)
[2021-02-14] MEDS: Escitalopram Oxalate 10 mg Tablet PO SCH (08:37)
[2021-02-14] MEDS: Aspirin 81 mg Enteric Coated Tablet PO SCH (08:38)
[2021-02-14] MEDS: Gabapentin 300 MG CAP PO SCH ×2 (08:38→21:39)
[2021-02-14] MEDS: Ferrous Sulfate 325 MG TAB PO SCH ×2 (08:39→21:41)
[2021-02-14] MEDS: Enoxaparin Sodium 40 MG/0.4 ML SYRINGE SC SCH (08:39)
[2021-02-14] MEDS: Gabapentin 300 MG CAP PO PRN (21:40)
[2021-02-14] MEDS: Zolpidem Tartrate 5 MG TAB PO PRN (21:41)
[2021-02-14] MEDS: Clopidogrel Bisulfate 75 MG TAB PO SCH (21:41)
[2021-02-14] MEDS: Simvastatin 10 MG TAB PO SCH (21:41)
[2021-02-14] MEDS: Lisinopril 10 MG TAB PO SCH (21:41)
[2021-02-14] MEDS: Lantus 1000 UNITS/10 ML VIAL SC SCH (21:42)
[2021-02-15 06:54] LABS: Anion Gap 13 mmol/L (10-20); BUN (Urea Nitrogen) 32 mg/dL (8.4-25.7); Calc. Creatinine Clearance 106 mL/min (70-130); Calcium 9.3 mg/dL (7.8-10.44); Carbon Dioxide 24 mmol/L (23-31); Chloride 105 mmol/L (98-107); Glucose 144 mg/dL (80-115); Potassium 4.5 mmol/L (3.5-5.1); Sodium 137 mmol/L (136-145)
[2021-02-15] MEDS: Aspirin 81 mg Enteric Coated Tablet PO SCH (08:35)
[2021-02-15] MEDS: Enoxaparin Sodium 40 MG/0.4 ML SYRINGE SC SCH (08:35)
[2021-02-15] MEDS: Escitalopram Oxalate 10 mg Tablet PO SCH (08:36)
[2021-02-15] MEDS: Ferrous Sulfate 325 MG TAB PO SCH ×2 (08:36→21:16)
[2021-02-15] MEDS: Carvedilol 6.25 MG TAB PO SCH ×2 (08:36→17:16)
[2021-02-15] MEDS: Gabapentin 300 MG CAP PO SCH ×2 (08:36→21:15)
[2021-02-15] MEDS: Furosemide 20 MG TAB PO SCH (08:36)
[2021-02-15] MEDS: metFORMIN 500 MG TAB PO SCH ×2 (08:37→17:16)
[2021-02-15] MEDS: Simvastatin 10 MG TAB PO SCH (21:15)
[2021-02-15] MEDS: Lantus 1000 UNITS/10 ML VIAL SC SCH (21:15)
[2021-02-15] MEDS: Clopidogrel Bisulfate 75 MG TAB PO SCH (21:15)
[2021-02-15] MEDS: Lisinopril 10 MG TAB PO SCH (21:15)
[2021-02-15] MEDS: Zolpidem Tartrate 5 MG TAB PO PRN (21:16)
[2021-02-15] MEDS: Gabapentin 300 MG CAP PO PRN (21:16)
[2021-02-16 01:19] VITALS: BMI 25.6
[2021-02-16] MEDS: Carvedilol 6.25 MG TAB PO SCH ×2 (09:30→17:37)
[2021-02-16] MEDS: Ferrous Sulfate 325 MG TAB PO SCH ×2 (09:30→21:13)
[2021-02-16] MEDS: Aspirin 81 mg Enteric Coated Tablet PO SCH (09:30)
[2021-02-16] MEDS: metFORMIN 500 MG TAB PO SCH ×2 (09:30→17:37)
[2021-02-16] MEDS: Furosemide 20 MG TAB PO SCH (09:30)
[2021-02-16] MEDS: Escitalopram Oxalate 10 mg Tablet PO SCH (09:30)
[2021-02-16] MEDS: Gabapentin 300 MG CAP PO SCH ×2 (09:31→21:12)
[2021-02-16] MEDS: Enoxaparin Sodium 40 MG/0.4 ML SYRINGE SC SCH (09:31)
[2021-02-16] MEDS: HumaLOG 300 UNITS/3 ML VIAL SC PRN (12:09)
[2021-02-16] MEDS: Gabapentin 300 MG CAP PO PRN (21:12)
[2021-02-16] MEDS: Lisinopril 10 MG TAB PO SCH (21:12)
[2021-02-16] MEDS: Zolpidem Tartrate 5 MG TAB PO PRN (21:12)
[2021-02-16] MEDS: Lantus 1000 UNITS/10 ML VIAL SC SCH (21:13)
[2021-02-16] MEDS: Simvastatin 10 MG TAB PO SCH (21:13)
[2021-02-16] MEDS: Clopidogrel Bisulfate 75 MG TAB PO SCH (21:13)
[2021-02-17] MEDS: Gabapentin 300 MG CAP PO SCH ×2 (08:05→20:36)
[2021-02-17] MEDS: Carvedilol 6.25 MG TAB PO SCH ×2 (08:06→17:39)
[2021-02-17] MEDS: Furosemide 20 MG TAB PO SCH (08:06)
[2021-02-17] MEDS: metFORMIN 500 MG TAB PO SCH ×2 (08:07→17:39)
[2021-02-17] MEDS: Aspirin 81 mg Enteric Coated Tablet PO SCH (08:08)
[2021-02-17] MEDS: Enoxaparin Sodium 40 MG/0.4 ML SYRINGE SC SCH (08:09)
[2021-02-17] MEDS: Escitalopram Oxalate 10 mg Tablet PO SCH (08:09)
[2021-02-17] MEDS: Ferrous Sulfate 325 MG TAB PO SCH ×2 (08:10→20:36)
[2021-02-17] MEDS: Cyclobenzaprine 10 MG TAB PO PRN (08:10)
[2021-02-17] MEDS: HumaLOG 300 UNITS/3 ML VIAL SC PRN (12:12)
[2021-02-17] MEDS: Lantus 1000 UNITS/10 ML VIAL SC SCH (20:35)
[2021-02-17] MEDS: Zolpidem Tartrate 5 MG TAB PO PRN (20:35)
[2021-02-17] MEDS: Gabapentin 300 MG CAP PO PRN (20:36)
[2021-02-17] MEDS: Simvastatin 10 MG TAB PO SCH (20:36)
[2021-02-17] MEDS: Lisinopril 10 MG TAB PO SCH (20:36)
[2021-02-17] MEDS: Clopidogrel Bisulfate 75 MG TAB PO SCH (20:36)
[2021-02-18] MEDS: Enoxaparin Sodium 40 MG/0.4 ML SYRINGE SC SCH (08:30)
[2021-02-18] MEDS: Furosemide 20 MG TAB PO SCH (08:31)
[2021-02-18] MEDS: Ferrous Sulfate 325 MG TAB PO SCH ×2 (08:31→20:58)
[2021-02-18] MEDS: Carvedilol 6.25 MG TAB PO SCH ×2 (08:31→17:01)
[2021-02-18] MEDS: Gabapentin 300 MG CAP PO SCH ×2 (08:31→20:58)
[2021-02-18] MEDS: metFORMIN 500 MG TAB PO SCH ×2 (08:31→17:01)
[2021-02-18] MEDS: Aspirin 81 mg Enteric Coated Tablet PO SCH (08:31)
[2021-02-18] MEDS: Escitalopram Oxalate 10 mg Tablet PO SCH (08:32)
[2021-02-18] MEDS: HumaLOG 300 UNITS/3 ML VIAL SC PRN (12:03)
[2021-02-18] MEDS: Lisinopril 10 MG TAB PO SCH (20:58)
[2021-02-18] MEDS: Clopidogrel Bisulfate 75 MG TAB PO SCH (20:58)
[2021-02-18] MEDS: Simvastatin 10 MG TAB PO SCH (20:58)
[2021-02-18] MEDS: Zolpidem Tartrate 5 MG TAB PO PRN (20:59)
[2021-02-18] MEDS: Gabapentin 300 MG CAP PO PRN (20:59)
[2021-02-18] MEDS: Lantus 1000 UNITS/10 ML VIAL SC SCH (21:00)
[2021-02-19] MEDS: Carvedilol 6.25 MG TAB PO SCH ×2 (07:39→17:20)
[2021-02-19] MEDS: metFORMIN 500 MG TAB PO SCH ×2 (07:40→17:20)
[2021-02-19] MEDS: Furosemide 20 MG TAB PO SCH (07:40)
[2021-02-19] MEDS: Ferrous Sulfate 325 MG TAB PO SCH ×2 (09:12→21:13)
[2021-02-19] MEDS: Gabapentin 300 MG CAP PO SCH ×2 (09:12→21:14)
[2021-02-19] MEDS: Enoxaparin Sodium 40 MG/0.4 ML SYRINGE SC SCH (09:12)
[2021-02-19] MEDS: Escitalopram Oxalate 10 mg Tablet PO SCH (09:13)
[2021-02-19] MEDS: Aspirin 81 mg Enteric Coated Tablet PO SCH (09:13)
[2021-02-19] MEDS: Simvastatin 10 MG TAB PO SCH (21:13)
[2021-02-19] MEDS: Lisinopril 10 MG TAB PO SCH (21:13)
[2021-02-19] MEDS: Clopidogrel Bisulfate 75 MG TAB PO SCH (21:14)
[2021-02-19] MEDS: Gabapentin 300 MG CAP PO PRN (21:15)
[2021-02-19] MEDS: Zolpidem Tartrate 5 MG TAB PO PRN (21:15)
[2021-02-19] MEDS: Lantus 1000 UNITS/10 ML VIAL SC SCH (21:16)
[2021-02-20] MEDS: metFORMIN 500 MG TAB PO SCH ×2 (08:32→17:31)
[2021-02-20] MEDS: Escitalopram Oxalate 10 mg Tablet PO SCH (08:32)
[2021-02-20] MEDS: Gabapentin 300 MG CAP PO SCH ×2 (08:32→20:53)
[2021-02-20] MEDS: Carvedilol 6.25 MG TAB PO SCH ×2 (08:32→17:31)
[2021-02-20] MEDS: Aspirin 81 mg Enteric Coated Tablet PO SCH (08:32)
[2021-02-20] MEDS: Ferrous Sulfate 325 MG TAB PO SCH ×2 (08:32→20:53)
[2021-02-20] MEDS: Enoxaparin Sodium 40 MG/0.4 ML SYRINGE SC SCH (08:33)
[2021-02-20] MEDS: Furosemide 20 MG TAB PO SCH (08:33)
[2021-02-20] MEDS: Lantus 1000 UNITS/10 ML VIAL SC SCH (20:52)
[2021-02-20] MEDS: Zolpidem Tartrate 5 MG TAB PO PRN (20:52)
[2021-02-20] MEDS: Simvastatin 10 MG TAB PO SCH (20:54)
[2021-02-20] MEDS: Clopidogrel Bisulfate 75 MG TAB PO SCH (20:54)
[2021-02-20] MEDS: Lisinopril 10 MG TAB PO SCH (20:54)
[2021-02-20] MEDS: Gabapentin 300 MG CAP PO PRN (22:42)
[2021-02-21 06:22] LABS: Hemoglobin 12.2 g/dL (14.0-18.0); Platelet Count 209 thou/uL (130-400)
[2021-02-21] MEDS: Gabapentin 300 MG CAP PO SCH (07:49)
[2021-02-21] MEDS: Aspirin 81 mg Enteric Coated Tablet PO SCH (07:50)
[2021-02-21] MEDS: metFORMIN 500 MG TAB PO SCH (07:50)
[2021-02-21] MEDS: Escitalopram Oxalate 10 mg Tablet PO SCH (07:50)
[2021-02-21] MEDS: Carvedilol 6.25 MG TAB PO SCH (07:50)
[2021-02-21] MEDS: Ferrous Sulfate 325 MG TAB PO SCH (07:50)
[2021-02-21] MEDS: Furosemide 20 MG TAB PO SCH (07:54)
[2021-02-21] MEDS: Enoxaparin Sodium 40 MG/0.4 ML SYRINGE SC SCH (07:55)
[2021-02-21 13:02] VITALS: BP 133/83; TEMP 98
== END 2021-02-21 14:52 | DRG 638 ==
LOC: NAV ACUTE 14:46
PROVIDERS: ADMIT Internal Medicine; ATTEND Internal Medicine
DX: E11.621 Type 2 diabetes mellitus with foot ulcer (principal); I50.42 Chronic combined systolic (congestive) and diastolic (congestive) heart failure; E87.1 Hypo-osmolality and hyponatremia; Z09 Encounter for follow-up examination after completed treatment for conditions other than malignant neoplasm; Z89.512 Acquired absence of left leg below knee; E78.5 Hyperlipidemia, unspecified; E11.51 Type 2 diabetes mellitus with diabetic peripheral angiopathy without gangrene; I48.91 Unspecified atrial fibrillation; I25.10 Atherosclerotic heart disease of native coronary artery without angina pectoris; K59.00 Constipation, unspecified; F41.9 Anxiety disorder, unspecified; L89.612 Pressure ulcer of right heel, stage 2; F32.9 Major depressive disorder, single episode, unspecified; I11.0 Hypertensive heart disease with heart failure; L97.529 Non-pressure chronic ulcer of other part of left foot with unspecified severity; R53.81 Other malaise; D63.8 Anemia in other chronic diseases classified elsewhere; R91.1 Solitary pulmonary nodule; G47.33 Obstructive sleep apnea (adult) (pediatric); Z86.73 Personal history of transient ischemic attack (TIA), and cerebral infarction without residual deficits; Z90.49 Acquired absence of other specified parts of digestive tract; Z95.5 Presence of coronary angioplasty implant and graft; S42.402D Unspecified fracture of lower end of left humerus, subsequent encounter for fracture with routine healing
CPT/HCPCS: 36415; 36416; 80048; 80053; 85014; 85018; 85025; 85049; 87070; 87077; 87186; 87205; 97602; J1650; J1815; J7050; Q9967

== ENCOUNTER 2021-06-04 13:29 | Emergency (ER) | payer MEDICARE ==
[2021-06-04 14:37] LABS: #Basophils 0.1 thou/uL (0.0-0.2); #Lymphocytes 0.6 thou/uL (1.20-3.40); #Neutrophils 14.4 thou/uL (1.40-6.50); %Basophils 0.5 % (0.0-1.0); %Eosinophils 0.3 % (0.0-10.0); %Lymphocytes 3.7 % (21.0-51.0); %Monocytes 6.1 % (0.0-10.0); %Neutrophils 89.5 % (42.0-75.0); Hemoglobin 9.6 g/dL (14.0-18.0); Mean Corpuscular HGB CONC 30.9 g/dL (32.0-36.0); Mean Corpuscular Hemoglobin 27.5 pg (27.0-31.0); Mean Corpuscular Volume 89.2 fL (78.0-98.0); Mean Platelet Volume 6.5 fL (7.4-10.4); Platelet Count 324 thou/uL (130-400); RBC Distribution Width 17.3 % (11.5-14.5); Red Blood Cell (RBC) Count 3.49 mill/uL (4.70-6.10); White Blood Cell (WBC) Count 16.1 thou/uL (4.8-10.8)
[2021-06-04 14:51] LABS: Anion Gap 16 mmol/L (10-20); BUN (Urea Nitrogen) 10 mg/dL (8.4-25.7); Calc. Creatinine Clearance 0 mL/min (70-130); Calcium 8.3 mg/dL (7.8-10.44); Carbon Dioxide 26 mmol/L (23-31); Chloride 98 mmol/L (98-107); Glucose 227 mg/dL (80-115); Potassium 3.6 mmol/L (3.5-5.1); Sodium 136 mmol/L (136-145)
[2021-06-04 14:52] LABS: Acetaminophen Less than 6.0 mcg/mL (10.0-30.0); Alcohol Less than 10 mg/dL (Less than 10); Salicylate Less than 8.0 mg/dL (15.0-30.0)
[2021-06-04 15:46] LABS: Bilirubin Small (Negative); Blood, Urine Negative (Negative); Glucose, Urine (Dipstick) 100 mg/dL (Negative); Ketone, Urine Negative (Negative); Leukocyte Negative (Negative); Nitrite Negative (Negative); Protein, Urine (Dipstick) 100 mg/dL (Neg-Trace); pH, Urine 5.5 (5.0-9.0)
[2021-06-04 15:54] LABS: Clarity SL HAZY (Clear)
[2021-06-04 15:56] LABS: WBC/HPF 0-3 HPF (0-3)
[2021-06-04 15:58] LABS: RBC/HPF 0-3 HPF (0-3); Squamous Epithelial 0-3 HPF (0-3); Yeast-Budding Rare HPF (None Seen)
[2021-06-04 15:59] LABS: Amphetamine Not Detected (NotDetected); Barbiturates Screen Not Detected (NotDetected); Benzodiazepine Screen Not Detected (NotDetected); Cocaine Metabolite Screen Not Detected (NotDetected); Medtox Control Line Valid? VALID (VALID); Methadone Not Detected (NotDetected); Methamphetamine Not Detected (NotDetected); Opiate Screen Not Detected (NotDetected); Oxycodone Screen Not Detected (NotDetected); Phencyclidine (PCP) Not Detected (NotDetected); THC/Cannabinoid Screen Not Detected (NotDetected); Tricyclic Screen Not Detected (NotDetected)
[2021-06-04] MEDS ORDERED: Cefepime 2 GM VIAL ONE (16:37)
[2021-06-04] MEDS ORDERED: Sodium Chloride 0.9% 100 ML ONE (16:38)
[2021-06-04] MEDS ORDERED: Vancomycin HCl 500 MG VIAL ONE (17:49)
[2021-06-04] MEDS ORDERED: Sodium Chloride 0.9% 250 ML 250 ML ONE (17:49)
[2021-06-04] MEDS ORDERED: diphenhydrAMINE 50 MG/ML VIAL ONE (19:13)
== END 2021-06-04 20:00 ==
LOC: NAV ERS 13:29
DX: L03.115 Cellulitis of right lower limb (principal); F32.9 Major depressive disorder, single episode, unspecified; E11.9 Type 2 diabetes mellitus without complications; E78.5 Hyperlipidemia, unspecified; I10 Essential (primary) hypertension; I25.2 Old myocardial infarction
CPT/HCPCS: 80048; 80306; 80307; 81003; 81015; 83605; 84443; 85025; 96365; 96375; J0692; J1200; J3370; J3490; J7050

== ENCOUNTER 2021-09-29 08:32 | Emergency (ER) | payer MEDICARE ==
[2021-09-29] MEDS ORDERED: Iopamidol 370 76% 100 ML VIAL ONE (09:00)
[2021-09-29 09:46] LABS: ALT (SGPT) 21 U/L (8-55); Albumin 2.2 g/dL (3.4-4.8); Alkaline Phosphatase 181 U/L (40-110); Anion Gap 14 mmol/L (10-20); BUN (Urea Nitrogen) 12 mg/dL (8.4-25.7); Bilirubin, Total 0.5 mg/dL (0.2-1.2); Calc. Creatinine Clearance 0 mL/min (70-130); Calcium 8.4 mg/dL (7.8-10.44); Carbon Dioxide 27 mmol/L (23-31); Chloride 99 mmol/L (98-107); Globulin 4.4 g/dL (2.4-3.5); Glucose 299 mg/dL (80-115); Protein, Total 6.6 g/dL (5.8-8.1)
[2021-09-29 09:52] LABS: AST (SGOT) 25 U/L (5-34); Sodium 135 mmol/L (136-145)
[2021-09-29 09:57] LABS: Band 2 % (5-11); Hemoglobin 12.1 g/dL (14.0-18.0); Lymphocytes 7 % (21-51); MDiff Complete? YES; Mean Corpuscular HGB CONC 29.3 g/dL (32.0-36.0); Mean Corpuscular Hemoglobin 27.6 pg (27.0-31.0); Mean Corpuscular Volume 94.1 fL (78.0-98.0); Monocytes 2 % (0-10); Neutrophil 89 % (42-75); Platelet Count 327 thou/uL (130-400); Platelet Morphology Comment Appears Adequate; RBC Morphology Normal; Red Blood Cell (RBC) Count 4.37 mill/uL (4.70-6.10); White Blood Cell (WBC) Count 9.8 thou/uL (4.8-10.8)
[2021-09-29 10:51] LABS: Potassium 3.9 mmol/L (3.5-5.1)
[2021-09-29] MEDS ORDERED: Enoxaparin Sodium 80 MG/0.8 ML SYRINGE ONE (11:43)
[2021-09-29 12:21] LABS: SARS-CoV-2 NAA Rapid Test Not Detected (NotDetected)
== END 2021-09-29 18:44 | disposition short-term general hospital (02) ==
LOC: NAV ERS 08:32
DX: I26.99 Other pulmonary embolism without acute cor pulmonale (principal); Z20.822 Contact with and (suspected) exposure to COVID-19; I48.91 Unspecified atrial fibrillation; E11.9 Type 2 diabetes mellitus without complications; E78.5 Hyperlipidemia, unspecified; I10 Essential (primary) hypertension; I25.2 Old myocardial infarction; Z86.73 Personal history of transient ischemic attack (TIA), and cerebral infarction without residual deficits; Z79.899 Other long term (current) drug therapy; Z79.01 Long term (current) use of anticoagulants; Z79.84 Long term (current) use of oral hypoglycemic drugs
CPT/HCPCS: 71045; 71260; 75710; 80053; 83605; 85025; 87040; 93005; U0002; 36415; 96372; J1650; Q9967